=== PATIENT | male | born 1945 | race Caucasian/White ===

== ENCOUNTER → 2016-07-05 | Outpatient (CLI) | payer BC ==
[~2016-07-05] MED LIST: LPR25 PO; LSN/10125 PO; MULTTAB58 PO; OMEG10007 PO; OMEP40CA PO; SIMV20TA2 PO
[2016-07-05 13:05] LABS: BLOOD UREA NITROGEN 19 mg/dl (7-18); BUN/CREATININE RATIO 12.5 (10-20); CALCIUM 9.2 mg/dl (8.5-10.1); CARBON DIOXIDE 25 mmol/L (21-32); CHLORIDE 105 mmol/L (98-107); GLUCOSE 101 mg/dl (70-99); POTASSIUM 3.8 mmol/L (3.5-5.1); SODIUM 140 mmol/L (136-145)
[2016-07-05 13:09] LABS: CHOLESTEROL/HDL RATIO 4.8
== END | disposition home or self-care (01) ==
LOC: C.LABPVFM 08:03
PROVIDERS: ATTEND Family Medicine
DX: E78.2 Mixed hyperlipidemia (principal); I12.9 Hypertensive chronic kidney disease with stage 1 through stage 4 chronic kidney disease, or unspecified chronic kidney disease; N18.2 Chronic kidney disease, stage 2 (mild)

== ENCOUNTER → 2017-11-11 | Day surgery (SDC) | payer BC ==
[2017-11-07 08:53] VITALS: Ht 170.2 cm; Wt 93.2 kg
[~2017-11-11] VITALS: Ht 170.2 cm; Wt 93.2 kg
[~2017-11-11] MED LIST changes: +B-COTAB18 PO; +LIDOCAINE HCL 2% 2 ML VIAL (20MG/ML) ONE; +OMEP-334 PO; -OMEP40CA PO; +PROPOFOL IV EMULSION 10 MG/ML 20 ML VIAL ONE; +PSYL58.636; +RANI150T85 PO
--- NOTE | 2017-11-11 11:17 | Endo History and Physical ---
History & Physical Date of Service: November 11, 2017. Chief Complaint: GERD Referring Physician: Stan History of Present Illness 72 yo CM who presents for EGD secondary to GERD. Past Surgical History Hx Cardiac Surgery: No Hx Internal Defibrillator: No Hx Pacemaker: No Hx Abdominal Surgery: No Hx of Implantable Prosthesis: No Hx Post-Op Nausea and Vomiting: No Hx Cancer Surgery: No Hx Thoracic Surgery: No Hx Orthopedic: No Hx Urinary Tract Surgery: No Social History Smoking Status: Former Smoker Hx Substance Use: No Hx Alcohol Use: No Allergies Coded Allergies: Penicillins (Verified Allergy, Severe, HIVES, 11/07/17) Current Medications Reported Home Medications Medications Dose Route/Sig Max Daily Dose Days Date Category Metamucil Fiber (Psyllium) 51.7 % Andry DIRECTED 11/07/17 Reported Vitamin B Complex (B-Complex Vitamins) 1 Tab Tab 1 Tab PO DAILY 11/07/17 Reported Zantac (Ranitidine HCl) 150 Mg Tab 1 Tab PO BID 30 11/07/[address] (Omeprazole) 40 Mg Cap 1 Cap PO QAM 11/07/17 Reported Lopressor (Metoprolol Tartrate) 25 Mg Tab 12.5 Mg PO BID 30 04/02/16 Rx [place]-3 (Fish Oil) 1 Ea Cap 1 Cap PO BID 03/15/15 Reported Multivitamin (Multiple Vitamin) 1 Tab Tab 1 Tablet PO DAILY 06/09/13 Reported Zocor (Simvastatin) 20 Mg Tab 20 Mg PO QPM 06/09/13 Reported Lisinopril/Hctz 10/12.5 Mg (HCTZ/Lisinopril) 1 Ea Tab 1 Tablet PO DAILY 06/09/13 Reported Vital Signs Weight (Kilograms): 93.18 Height (Feet): 5 Height (Inches): 7 Physical Exam General Appearance: WD/WN, no apparent distress Respiratory/Chest: Auscultation: breath sounds normal Cardiovascular: Heart Auscultation: RRR Abdomen: Bowel Sounds: normal Inspection & Palpation: soft, non-distended, no tenderness, guarding & rebound Assessment and Plan Assessment: 72 yo CM who presents for EGD secondary to GERD. Plan: Proceed with EGD.
[2017-11-11 12:42] VITALS: BP 120/63; PULSE 69; O2SAT 94
--- NOTE | 2017-11-11 12:42 | Discharge Instructions ---
Endoscopy Patient Instructions Date / Procedure(s) Performed November 11, 2017. EGD Allergy Information Coded Allergies: Penicillins (Verified Allergy, Severe, HIVES, 11/07/17) Discharge Date / Findings November 11, 2017. Hiatal hernia Medication Instructions 1) Stop Omeprazole and Ranitidine therapy 2) Start Pantoprazole 40mg by mouth 1/2 hour prior to breakfast and dinner. 3) OK to resume all other medications today as prescribed Reported Home Medications Medications Dose Route/Sig Max Daily Dose Days Date Category Metamucil Fiber (Psyllium) 51.7 % Andry DIRECTED 11/07/17 Reported Vitamin B Complex (B-Complex Vitamins) 1 Tab Tab 1 Tab PO DAILY 11/07/17 Reported Zantac (Ranitidine HCl) 150 Mg Tab 1 Tab PO BID 30 11/07/[address] (Omeprazole) 40 Mg Cap 1 Cap PO QAM 11/07/17 Reported Lopressor (Metoprolol Tartrate) 25 Mg Tab 12.5 Mg PO BID 30 04/02/16 Rx [place]ra-3 (Fish Oil) 1 Ea Cap 1 Cap PO BID 03/15/15 Reported Multivitamin (Multiple Vitamin) 1 Tab Tab 1 Tablet PO DAILY 06/09/13 Reported Zocor (Simvastatin) 20 Mg Tab 20 Mg PO QPM 06/09/13 Reported Lisinopril/Hctz 04/07.5 Mg (HCTZ/Lisinopril) 1 Ea Tab 1 Tablet PO DAILY 06/09/13 Reported Provider Instructions Activity Restrictions - No exercising or heavy lifting for 24 hours. - Do not drink alcohol the day of the procedure. - Do not drive a car or operate machinery until the day after the procedure. - Do not make any important decisions or sign important papers in 24 hours after the procedure. Following Day: - Return to full activity which may include returning to work/school. Diet Start your diet with liquids and light foods (jello, soup, juice, toast). Then eat your usual diet if not nauseated. Treatment For Common After Affects For mild abdominal pain, bloating, or excessive gas: - Rest - Eat lightly - Lie on right side Follow-Up Information Follow-up with Dr. Joanie Pierce as scheduled Anesthesia Information What You Should Know You have had a procedure that required some medicine to reduce anxiety and discomfort. This treatment is called moderate sedation. After receiving the treatment, you may be sleepy, but you will be able to breathe on your own. The effects of the treatment may last for several hours. Follow these instructions along with Activity/Diet recommendations noted above: * Do NOT do anything where dizziness or clumsiness would be dangerous. * Rest quietly at home today, then you can be up and about tomorrow. * Have a responsible person stay with you the rest of today. * You may have had an I.V. today. If so, you may take the dressing off later today. Recommendations Call your doctor if: * Trouble breathing * Continuous vomiting for more than 24 hours * Temperature above 101 degrees * Severe abdominal pain or bloating * Pain not relieved by pain medicine ordered * There is increased drainage or redness from any incision * A large amount of rectal bleeding greater than 2-3 tablespoons. (If you had a polyp/s removed or have hemorrhoids, a small amount of blood - from the rectum is to be expected.) * You have any unanswered questions or concerns. IN THE EVENT OF A SERIOUS EMERGENCY, GO TO THE NEAREST EMERGENCY ROOM Your discharge instructions were prepared by provider Kamaljit Farr. Patient Instructions Signature Page [place] Patient (or Guardian) Signature/Date: I have read and understand the instructions given to me by my caregivers. Caregiver/RN/Doctor Signature/Date: The above-named patient and/or guardian has received patient instructions on this date. + Original Patient Signature Page (only) stays with chart. Please make copy for patient.
--- NOTE | 2017-11-11 12:45 | GI REPORT ---
Patient Name: Franco Membreno Procedure Date: 11/11/2017 11:46 AM Date of : 1945 Admit Type: Outpatient Age: 72 Gender: Male Attending MD: Kamaljit Farr DO Procedure: Upper GI endoscopy Providers: Kamaljit Farr DO Referring MD: Jerod Louis M.d. Indications: Gastro-esophageal reflux disease Medicines: Monitored Anesthesia Care Complications: No immediate complications. Estimated Blood Loss: Estimated blood loss: none. Procedure: Pre-Anesthesia Assessment: - Prior to the procedure, a History and Physical was performed, and patient medications and allergies were reviewed. The patient's tolerance of previous anesthesia was also reviewed. The risks and benefits of the procedure and the sedation options and risks were discussed with the patient. All questions were answered, and informed consent was obtained. Prior Anticoagulants: The patient has taken no previous anticoagulant or antiplatelet agents. ASA Grade Assessment: III - A patient with severe systemic disease. After reviewing the risks and benefits, the patient was deemed in satisfactory condition to undergo the procedure. After obtaining informed consent, the endoscope was passed under direct vision. Throughout the procedure, the patient's blood pressure, pulse, and oxygen saturations were monitored continuously. The scope was introduced through the mouth, and advanced to the second part of duodenum. The upper GI endoscopy was accomplished without difficulty. The patient tolerated the procedure well. Findings: The esophagus was normal. A medium-sized hiatal hernia was present. The examined duodenum was normal. Impression: - Normal esophagus. - Medium-sized hiatal hernia. - Normal examined duodenum. - No specimens collected. Recommendation: - Resume previous diet. - Stop Omeprazole and Ranitidine therapy - Use Protonix (pantoprazole) 40 mg PO BID. - Return to GI office in 6 weeks. Kamaljit Farr DO 11/11/2017 12:44:59 PM This report has been signed electronically. Note Initiated On: 11/11/2017 11:46 AM Number of Addenda: 0 I attest to the content of the Intraoperative Record and orders documented therein, exceptions below {[id number]}
--- NOTE | 2017-11-11 12:59 | Anesthesiology Progress Note ---
Anesthesia Post Op Note Date & Time November 11, 2017 at 12:59 Vital Signs Pain Intensity: 0 Vital Signs Past 12 Hours Date Time Temp Pulse Resp B/P (MAP) Pulse Ox O2 Delivery O2 Flow Rate FiO2 11/11/17 12:42 69 20 120/63 (82) 94 Room Air 11/11/17 12:24 70 18 125/74 (91) 94 Room Air 11/11/17 12:01 36.0 82 16 114/64 (81) 94 Room Air 11/11/17 11:20 36.7 83 20 148/83 (104) 99 Room Air Notes Mental Status: alert / awake / arousable, participated in evaluation Pt Amnestic to Procedure: Yes Nausea / Vomiting: adequately controlled Pain: adequately controlled Airway Patency, RR, SpO2: stable & adequate BP & HR: stable & adequate Hydration State: stable & adequate Anesthetic Complications: no major complications apparent
== END | disposition home or self-care (01) ==
LOC: C.GI 10:49
PROVIDERS: ATTEND Internal Medicine
DX: K21.9 Gastro-esophageal reflux disease without esophagitis (principal); K44.9 Diaphragmatic hernia without obstruction or gangrene; I10 Essential (primary) hypertension; Z88.0 Allergy status to penicillin; Z79.899 Other long term (current) drug therapy; M19.90 Unspecified osteoarthritis, unspecified site

== ENCOUNTER 2019-07-27 16:53 | Inpatient (IN) ==
[2019-07-27] MEDS ORDERED: METOPROLOL TARTRATE 1 MG/ML VIAL IV STA ×3 (17:19→18:38)
[2019-07-27 17:22] LABS: Basophils # (auto) 0.03 K/uL (0-0.2); Basophils % (auto) 0.4 %; Eosinophils # (auto) 0.09 K/uL (0-0.5); Eosinophils % (auto) 1.1 %; Hematocrit (blood only) 43.9 % (42-52); Hemoglobin 15.8 g/dL (14.0-18.0); Immature Granulocytes # (auto) 0.02 K/uL (0.00-0.02); Immature Granulocytes % (auto) 0.3 %; Lymphocytes # (auto) 2.42 K/uL (1.2-3.4); Lymphocytes % (auto) 30.6 %; Mean Corpuscular Hemoglobin 33.3 pg (25-34); Mean Corpuscular Volume 92.4 fL (80-100); Mean Platelet Volume 10.3 fL (7.4-10.4); Monocytes % (auto) 10.1 %; Neutrophils # (auto) 4.54 K/uL (1.4-6.5); Neutrophils % (auto) 57.5 %; Platelet Count 200 K/uL (130-400); RDW Coefficient of Variation 13.1 % (11.5-14.5); RDW Standard Deviation 44.1 fL (36.4-46.3); Red Blood Count 4.75 M/uL (4.7-6.1)
[2019-07-27] MEDS ORDERED: SODIUM CHLORIDE 0.9% 1000ML 1,000 ML IV SCH (17:30)
[2019-07-27 17:33] LABS: Partial Thromboplastin Ratio 0.9; Partial Thromboplastin Time 24.9 Seconds (21.0-31.0); Prothrombin Time 10.1 Seconds (9.0-12.0)
[2019-07-27 17:40] LABS: Alanine Aminotransferase 35 U/L (12-78); Albumin Level 3.9 gm/dl (3.4-5.0); Aspartate Aminotransferase 21 U/L (15-37); BUN Creatinine Ratio 13.3 (10-20); Blood Urea Nitrogen 22 mg/dl (7-18); Calcium 9.2 mg/dl (8.5-10.1); Carbon Dioxide 22 mmol/L (21-32); Chloride 110 mmol/L (98-107); Creatinine Clr Calc Pharmacy 43.8 ml/min; Est GFR (Non-African American) 40.6; Glucose 98 mg/dl (70-99); Potassium 3.9 mmol/L (3.5-5.1); Sodium 140 mmol/L (136-145)
--- NOTE | 2019-07-27 17:41 | XRay Report ---
SINGLE VIEW CHEST CLINICAL HISTORY: Atypical chest pain. FINDINGS: An AP, portable, upright chest radiograph is compared to chest x-ray and chest CT dated 11/26. The examination is degraded by portable technique and apical lordotic positioning. The heart is mildly enlarged. The pulmonary vasculature is noncongested. There is no airspace consolidation or large pleural effusion. Scarring/atelectasis is noted at the lung bases. No pneumothorax is seen. The skeletal structures are osteopenic. The bony thorax is grossly intact. IMPRESSION: Mild cardiac enlargement with no active disease in the chest. ACT 112: Negative or not required by law. Electronically signed by: Demetrio Martinez M.D. 07/27/2019 5:39 PM
[2019-07-27 17:45] LABS: Albumin Globulin Ratio 1.1 (0.9-2); Alkaline Phosphatase 58 U/L (45-117); Bilirubin,Total 0.4 mg/dl (0.2-1); Globulin 3.5 gm/dl (2.5-4.0); Total Protein 7.4 gm/dl (6.4-8.2); Troponin I < 0.015 ng/ml (0-0.045)
[2019-07-27] MEDS ORDERED: ASPIRIN CHEW 324 MG PO STA (18:38)
[2019-07-27] MEDS ORDERED: dilTIAZem HCl 5 MG/ML 5 ML VIAL IV STA (19:53)
--- NOTE | 2019-07-27 20:22 | History & Physical Report ---
Date of Service July 27, 2019 Assessment & Plan (1) Atrial flutter with rapid ventricular response: Franco Membreno is a 73y/o M with PMH significant for HTN, HLD, GERD, and cervicalgia; presented to the emergency room for central chest pressure that had been present since the morning with a pounding sensation in his chest Atrial flutter with RVR: - HR remained in upper 120s to 140s in ED despite Toprol 5mg IV x3 - reverted to normal sinus rhythm prior to bolus of Cardizem being given - negative troponin - will start heparin drip - admit to med/surg with tele HTN: - continue home lisinopril, HCTZ, and Toprol GERD: - continue home Pepcid Hyperlipidemia: - continue home simvastatin Cervicalgia: - PO tylenol PRN available Diet: Heart healthy DVT ppx: Heparin drip Code status: Conditional code - no mechanical ventilation (2) Hypertension: (3) Chronic reflux esophagitis: (4) Mixed hyperlipidemia: (5) Cervicalgia: History of Present Illness Primary Care Provider: Joanie Pierce MD Franco Membreno is a 73y/o M with PMH significant for HTN, HLD, GERD, and cervicalgia; presented to the emergency room with concern of chest pressure that had been present over the course of the day; noticed the first pain this morning between his shoulder blades that he felt was more of an electric sharp pain similar to his normal neck pain, this resolved without any medication after three hours and he thought nothing of it until he walked up the hill about noon and noticed that he had a pressure and a pounding in the center of his chest, during this time he felt slightly more short of breath than he would normally be while walking up the hill. This pressure persisted throughout the afternoon without change or radiation. After being seen in the ED still had the chest pressure but he feels it is more that he feels his heart hitting his chest more than normal. Social hx: non-smoker, non-drinker, no illicits Allergies Allergy/AdvReac Type Severity Reaction Status Date / Time Penicillins Allergy Severe HIVES Verified 07/27/19 17:33 Home Medications Home Medications Medication Instructions Recorded Confirmed Type multivitamin [Multiple Vitamins] 1 tab PO QAM #0 tab 06/09/13 07/27/19 History omega 8-oro-dkr-fish oil [Fish Oil] 1 cap PO QAM #0 cap 03/15/15 07/27/19 History vitamin B complex 1 tab PO QAM #0 11/07/17 07/27/19 History Metamucil 2 tbsp PO QAM 06/22/19 07/27/19 History famotidine [Pepcid] 20 mg PO QPM 06/22/19 07/27/19 History A-C-E-zinc ox-cupric ox-lutein 2 tab PO QAM 07/27/19 07/27/19 History [Ocular Vitamins] Dexilant 60 mg PO DAILYBB 07/27/19 07/27/19 History lisinopril-hydrochlorothiazide 1 tab PO QAM 07/27/19 07/27/19 History [Zestoretic] metoprolol tartrate 12.5 mg PO BID 07/27/19 07/27/19 History simvastatin [Zocor] 20 mg PO HS 07/27/19 07/27/19 History Past Med/Surg History Medical History 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 Cervicalgia (Acute) Chronic sore throat (Acute) External hemorrhoids (Acute) Gastric ulcer GERD (gastroesophageal reflux disease) Hiatal hernia (Acute) Hyperlipidemia Hypertension Mixed hyperlipidemia (Chronic) Peripheral neuropathy (Chronic) Stage 2 chronic kidney disease (Chronic) Vertigo (Acute) Surgical History History of colonoscopy History of esophagogastroduodenoscopy (EGD) 03/03/2018 [facility] History of tooth extraction ALL TEETH REMOVED Family History Mother Myocardial infarction Social History Preferred Language: Estonian Communication Ability: Effective 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 Beliefs That Will Affect Care: None Current Living Situation: Family Current Living Situation Comment: lives with daughter Feels Safe at Home: Yes Safety Concerns: Feels Safe At This Time Smoking Status: Never smoker Tobacco Type: cigarettes ; Second Hand Exposure: No ; Hx Alcohol Use: No Hx Substance Use: No Seatbelt Use: never Review of Systems Constitutional: no fever, no chills and no sweats Eyes: no blind spots, no diplopia and no spots in vision Ear, Nose, Mouth, Throat: no ear discharge, no tinnitus, no nasal congestion, no nasal discharge and no post nasal drip Respiratory: no cough and no wheezing Cardiovascular: as per Subjective / HPI Gastrointestinal: no abdominal pain, no nausea, no vomiting and no change in stools Genitourinary: no difficulty urinating, no urinary frequency, no urinary hesitancy and no hematuria Neurologic: no localized weakness, no loss of sensation, no headache(s), no abnormal speech and no memory loss Physical Exam Constitutional: WD/WN, vitals as above Eyes: PERRL, conjunctivae normal, anicteric sclerae Respiratory: normal respiratory effort, lungs clear to auscultation Auscultation: no crackles, no rales, no rhonchi and no wheezes Cardiovascular: Rate/Rhythm: + tachycardic; + abnormal rhythm (regularly iregular rhythm) Heart Sounds: normal S1 and normal S2; no gallop, no murmur and no cardiac rub Gastrointestinal (Abdomen): normal bowel sounds, soft, nontender, no hepatosplenomegaly Musculoskeletal: no cyanosis or clubbing, extremities motor strength 5/5 Head/Neck/Chest: normocephalic and head atraumatic Skin: no rashes, warm and dry Lymphatic: no cervical or axillary lymphadenopathy Results & Data Vital Signs (Past 12 Hours) Vital Signs Temp Pulse Resp BP Pulse Ox 07/27/19 18:45 128 H 130/87 07/27/19 18:40 135 H 18 93 07/27/19 18:31 127 H 19 93 07/27/19 18:30 129 H 19 130/87 94 07/27/19 18:20 132 H 16 94 07/27/19 18:10 95 07/27/19 18:01 137 H 14 95 07/27/19 18:00 132 H 10 L 129/88 94 07/27/19 17:50 136 H 24 93 07/27/19 17:40 135 H 14 96 07/27/19 17:31 133 H 16 96 07/27/19 17:30 138 H 16 128/93 97 07/27/19 17:26 139 H 153/123 H 07/27/19 17:20 141 H 23 95 07/27/19 17:12 141 H 96 07/27/19 17:11 153/123 H 96 07/27/19 16:56 36.9 C 147 H 18 126/96 94 Laboratory Results 07/27/19 07/27/19 07/27/19 Range/Units 17:13 17:13 17:13 WBC 7.90 (4.8-10.8) K/uL RBC 4.75 (4.7-6.1) M/uL Hgb 15.8 (14.0-18.0) g/dL Hct 43.9 (42-52) % MCV 92.4 (80-100) fL MCH 33.3 (25-34) pg MCHC 36.0 (32-36) g/dL RDW Std Deviation 44.1 (36.4-46.3) fL RDW Coeff of Angel Luis 13.1 (11.5-14.5) % Plt Count 200 (130-400) K/uL MPV 10.3 (7.4-10.4) fL Immature Gran % (Auto) 0.3 % Neut % (Auto) 57.5 % Lymph % (Auto) 30.6 % Nash % (Auto) 10.1 % Eos % (Auto) 1.1 % Baso % (Auto) 0.4 % Immature Gran # (Auto) 0.02 (0.00-0.02) K/uL Neut # (Auto) 4.54 (1.4-6.5) K/uL Lymph # (Auto) 2.42 (1.2-3.4) K/uL Nash # (Auto) 0.80 H (0.11-0.59) K/uL Eos # (Auto) 0.09 (0-0.5) K/uL Baso # (Auto) 0.03 (0-0.2) K/uL PT 10.1 (9.0-12.0) Seconds INR 1.0 (0.9-1.1) APTT 24.9 (21.0-31.0) Seconds PTT Ratio 0.9 Sodium 140 (136-145) mmol/L Potassium 3.9 (3.5-5.1) mmol/L Chloride 110 H (98-107) mmol/L Carbon Dioxide 22 (21-32) mmol/L Anion Gap 8.0 (3-11) BUN 22 H (7-18) mg/dl Creatinine 1.66 H (0.6-1.4) mg/dl Est Cr Clr Drug Dosing 43.8 ml/min Est GFR ( Amer) 47.0 Est GFR (Non-Af Amer) 40.6 BUN/Creatinine Ratio 13.3 (10-20) Glucose 98 (70-99) mg/dl Calcium 9.2 (8.5-10.1) mg/dl Total Bilirubin 0.4 (0.2-1) mg/dl AST 21 (15-37) U/L ALT 35 (12-78) U/L Alkaline Phosphatase 58 (45-117) U/L Troponin I < 0.015 (0-0.045) ng/ml Total Protein 7.4 (6.4-8.2) gm/dl Albumin 3.9 (3.4-5.0) gm/dl Globulin 3.5 (2.5-4.0) gm/dl Albumin/Globulin Ratio 1.1 (0.9-2) Code Status & VTE Plan Code Status Conditional code - no mechanical ventilation Supervising Physician Co-Signing Physician Notes Patient seen and examined, chart reviewed, case discussed with Dr. La and I agree with his assessment and plan as documented above - patient converted to NSR after resident completed his note. Briefly, patient is a 73yo C male with history of HTN/GERD/HLP presenting with chest pressure/mid-scapular pain and palpitations. Patient found to be in atrial flutter on arrival. He was administered Metoprolol 5mg IV x 3 doses with spontaneous conversion to NSR. Patient states that he experiences palpitations occasionally over the last year. He has never been diagnosed with an arrhythmia before. On exam he is afebrile, irregularly irregular rhythm, tachycardia, no m/r/g Lungs -CTA Abd - +BS, soft, NT/ND Ext - no edema Labs and images reviewed Assessment/Plan - 73yo C male with HTN presenting in Atrial flutter with variable block. Patient with [id number] of 2 -Admit to medical floor with telemetry -Continue PO Metoprolol -Patient should receive oral anticoagulation on discharge -Followup with cardiology -Remainder of plan as above Resident Activity Tracking Resident Involvement: Resident Care Provided Care Provided: [facility] Medicine
[2019-07-27] MEDS ORDERED: ONDANSETRON INJ 2 MG/ML 2 ML VIAL IV PRN (21:12)
[2019-07-27] MEDS ORDERED: FAMOTIDINE 20 MG TAB PO SCH (21:12)
[2019-07-27] MEDS ORDERED: HEPARIN SODIUM/DEXTROSE 25,000 UNITS/500 ML BAG IV SCH (21:12)
[2019-07-27] MEDS ORDERED: MAGNESIUM HYDROXIDE SUSP 30 ML UDC PO PRN (21:12)
[2019-07-27] MEDS ORDERED: POLYETHYLENE (MIRALAX) 17 GM PACK PO PRN (21:12)
[2019-07-27] MEDS ORDERED: SIMVASTATIN 20 MG TAB PO SCH (21:12)
[2019-07-27] MEDS ORDERED: ACETAMINOPHEN 325 MG TAB PO PRN (21:12)
[2019-07-27] MEDS ORDERED: ALUMINUM/MAGNESIUM SUSP 30 ML UDC PO PRN (21:12)
--- NOTE | 2019-07-27 22:01 | Billing Data ---
Date of Service July 27, 2019 Coding Level of Care Code 66774 Initial Inpt Care Lvl 3
--- NOTE | 2019-07-27 23:10 | Emergency Department Note ---
Entered by Kayla Davies acting as a scribe for Sunny Cortes MD History of Present Illness General Chief complaint: Chest Pain Stated complaint: CHEST PAIN Time Seen by Provider: 07/27/19 17:08 Source: patient Mode of arrival: ambulatory Limitations: no limitations History of Present Illness Onset (ago): day(s) 1 Location: chest Radiation: extremity (left shoulder) and flank Pain Consistency: + intermittent Maximum Pain Intensity: 2 Current Pain Intensity: 2 Quality: + other ("tightness") Relieved By: + none Exacerbated By: + none Associated symptoms: + other (-pain or swelling in the legs, +dizziness); no fever/chills Treatments prior to arrival: none The patient is a 73 year old male who presents to the ED with complaints of chest discomfort. He states last night while he was sitting down, he experienced chest pain that radiated down his side. This morning, he started experiencing pain that radiates down his left shoulder. He rates his discomfort as a 2/10 in severity and states it felt like "tightness". This afternoon, the pain came back. When he went to the bathroom around 1600, he started to feel like his heart was "out of rhythm", so he decided to come to the ED. He denies any prior history of MN or heart blockages. He does admit to feeling a little dizzy. He denies any recent pain or swelling in the legs. He denies any new medications or missed medications. He denies any recent fevers. Home Medications Home Medications Medication Instructions Recorded Confirmed Type multivitamin [Multiple Vitamins] 1 tab PO QAM #0 tab 06/09/13 07/27/19 History omega 4-cpl-djl-fish oil [Fish Oil] 1 cap PO QAM #0 cap 03/15/15 07/27/19 History vitamin B complex 1 tab PO QAM #0 11/07/17 07/27/19 History Metamucil 2 tbsp PO QAM 06/22/19 07/27/19 History famotidine [Pepcid] 20 mg PO QPM 06/22/19 07/27/19 History A-C-E-zinc ox-cupric ox-lutein 2 tab PO QAM 07/27/19 07/27/19 History [Ocular Vitamins] Dexilant 60 mg PO DAILYBB 07/27/19 07/27/19 History lisinopril-hydrochlorothiazide 1 tab PO QAM 07/27/19 07/27/19 History [Zestoretic] metoprolol tartrate 12.5 mg PO BID 07/27/19 07/27/19 History simvastatin [Zocor] 20 mg PO HS 07/27/19 07/27/19 History Allergies Allergy/AdvReac Type Severity Reaction Status Date / Time Penicillins Allergy Severe HIVES Verified 07/27/19 17:33 Past Med/Surg History Medical History 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 Cervicalgia (Acute) Chronic sore throat (Acute) External hemorrhoids (Acute) Gastric ulcer GERD (gastroesophageal reflux disease) Hiatal hernia (Acute) Hyperlipidemia Hypertension Mixed hyperlipidemia (Chronic) Peripheral neuropathy (Chronic) Stage 2 chronic kidney disease (Chronic) Vertigo (Acute) Surgical History History of colonoscopy History of esophagogastroduodenoscopy (EGD) 03/03/2018 [facility] [place] History of tooth extraction ALL TEETH REMOVED Family History Mother Myocardial infarction Social History Preferred Language: Nauruan Communication Ability: Effective Resident Care Spec Required: No Beliefs That Will Affect Care: None Current Living Situation: Family Current Living Situation Comment: lives with daughter Feels Safe at Home: Yes Safety Concerns: Feels Safe At This Time Smoking Status: Never smoker Tobacco Type: cigarettes ; Second Hand Exposure: No ; Hx Alcohol Use: No Hx Substance Use: No Seatbelt Use: never Review of Systems See HPI for pertinent positives & negatives. and A total of 10 systems reviewed and were otherwise negative Physical Exam Vital Signs Vital Signs - 24 hr 07/27/19 16:56 07/27/19 17:11 07/27/19 17:12 Temperature 36.9 C Temperature Source Oral Pulse Rate 147 H 141 H Pulse Rate from SpO2 Sensor 142 H 140 H Respiratory Rate 18 Blood Pressure 126/96 153/123 H Blood Pressure Mean 106 133 Pulse Oximetry 94 96 96 Oxygen Delivery Method Room Air Room Air Room Air Sepsis Recent Fever Within 48 Hours No Sepsis New/Unexplained Change in Mental Status No Sepsis Action Taken by Nursing No Action Required 07/27/19 17:18 07/27/19 17:20 07/27/19 17:26 Temperature Temperature Source Pulse Rate 141 H 139 H Pulse Rate from SpO2 Sensor 141 H Respiratory Rate 23 Blood Pressure 153/123 H Blood Pressure Mean Pulse Oximetry 95 Oxygen Delivery Method Room Air Room Air Sepsis Recent Fever Within 48 Hours Sepsis New/Unexplained Change in Mental Status Sepsis Action Taken by Nursing 07/27/19 17:30 07/27/19 17:31 07/27/19 17:40 Temperature Temperature Source Pulse Rate 138 H 133 H 135 H Pulse Rate from SpO2 Sensor 137 H 135 H 135 H Respiratory Rate 16 16 14 Blood Pressure 128/93 Blood Pressure Mean 107 Pulse Oximetry 97 96 96 Oxygen Delivery Method Room Air Room Air Room Air Sepsis Recent Fever Within 48 Hours Sepsis New/Unexplained Change in Mental Status Sepsis Action Taken by Nursing 07/27/19 17:50 07/27/19 18:00 07/27/19 18:01 Temperature Temperature Source Pulse Rate 136 H 132 H 137 H Pulse Rate from SpO2 Sensor 137 H 135 H 134 H Respiratory Rate 24 10 L 14 Blood Pressure 129/88 Blood Pressure Mean 93 Pulse Oximetry 93 94 95 Oxygen Delivery Method Room Air Room Air Room Air Sepsis Recent Fever Within 48 Hours Sepsis New/Unexplained Change in Mental Status Sepsis Action Taken by Nursing 07/27/19 18:10 07/27/19 18:20 07/27/19 18:30 Temperature Temperature Source Pulse Rate 132 H 129 H Pulse Rate from SpO2 Sensor 137 H 136 H 129 H Respiratory Rate 16 19 Blood Pressure 130/87 Blood Pressure Mean 116 Pulse Oximetry 95 94 94 Oxygen Delivery Method Room Air Room Air Room Air Sepsis Recent Fever Within 48 Hours Sepsis New/Unexplained Change in Mental Status Sepsis Action Taken by Nursing 07/27/19 18:31 07/27/19 18:40 07/27/19 18:45 Temperature Temperature Source Pulse Rate 127 H 135 H 128 H Pulse Rate from SpO2 Sensor 125 H 129 H Respiratory Rate 19 18 Blood Pressure 130/87 Blood Pressure Mean Pulse Oximetry 93 93 Oxygen Delivery Method Room Air Room Air Sepsis Recent Fever Within 48 Hours Sepsis New/Unexplained Change in Mental Status Sepsis Action Taken by Nursing General: Non-ill appearing older male in no acute distress. HEENT: Normal cephalic atraumatic. Pupils are equal round and reactive to light. Extraocular movements are intact. Oropharynx is pink with moist mucous membranes. No swelling of the mouth lips or tongue. Neck: Supple with a midline trachea. No meningeal signs or stiffness, no JVD or bruits. No Stridor. Chest: Clear to auscultation bilaterally. No wheezes or rhonchi. No increased work of breathing. Heart: Tachycardic heart rate, regular rhythm. Abdomen: Soft nontender, nondistended without rebound guarding or rigidity. Extremities: No cyanosis clubbing or edema. No calf tenderness or asymmetry Spine/Back. Non tender to palpation. No CVA tenderness Skin: Good turgor without rashes. Neurologic exam: Cranial nerves two through 12 are intact. Motor and sensation are intact and symmetrical throughout. Course Course 1711: The patient was evaluated in room B9 and a complete history and physical were performed. 1720: On the monitor, he is tachycardic in the 140s, no ischemic changes. 1745: His heart rate is in the 130s. I will order another dose of Lopressor. 2035: I reevaluated the patient. He is resting comfortably. I discussed his results and my recommendation he remain in the hospital for further evaluation and management and he is agreeable with the plan. He denies any chest pain. 1855: I discussed the patients case with Dr. Agrawal, [facility] Hospitalist. The patient will be further evaluated. Administered Medications Famotidine (Pepcid) 20 mg PO QPM [facility] Stop: 08/26/19 21:11 Last Admin: 07/27/19 22:19 Dose: Not Given Documented by: [id number] Simvastatin (Zocor) 20 mg PO HS [facility] Stop: 08/26/19 21:11 Last Admin: 07/27/19 22:18 Dose: 20 mg Documented by: [id number] Discontinued Medications Aspirin (Aspirin) 324 mg PO NOW STA Stop: 07/27/19 18:39 Last Admin: 07/27/19 18:45 Dose: 324 mg Documented by: [id number] Diltiazem HCl (Cardizem) 20 mg IV NOW STA Stop: 07/27/19 19:54 Last Admin: 07/27/19 20:31 Dose: Not Given Documented by: [id number] Heparin Sodium/Dextrose () 1 ea IV Q15M [facility]; Protocol Stop: 07/27/19 23:59 Last Admin: 07/27/19 22:07 Dose: Not Given Documented by: [id number] Admin: 07/27/19 22:07 Dose: Not Given Documented by: [id number] Sodium Chloride (Nss 1000ml) 1,000 mls @ 999 mls/hr IV .Q1H1M [facility] Stop: 07/27/19 18:30 Last Infusion: 07/27/19 18:27 Dose: 0 mls/hr Documented by: [id number] Admin: 07/27/19 17:26 Dose: 999 mls/hr Documented by: [id number] Heparin Sodium/Dextrose (Heparin Sodium/Dextrose) 25,000 units in 500 mls @ 0.02 mls/hr IV .Q24H [facility]; Protocol Stop: 08/26/19 21:11 Last Admin: 07/27/19 22:07 Dose: Not Given Documented by: [id number] Metoprolol Tartrate (Lopressor) 5 mg IV NOW STA Stop: 07/27/19 17:20 Last Admin: 07/27/19 17:26 Dose: 5 mg Documented by: [id number] Metoprolol Tartrate (Lopressor) 5 mg IV NOW STA Stop: 07/27/19 17:49 Last Admin: 07/27/19 18:15 Dose: 5 mg Documented by: [id number] Metoprolol Tartrate (Lopressor) 5 mg IV NOW STA Stop: 07/27/19 18:39 Last Admin: 07/27/19 18:45 Dose: 5 mg Documented by: [id number] Critical Care Time Critical Care Time: Yes Total Critical Care Time: 35 I have personally spent 35 minutes of critical care time in the direct management of this patient. This includes bedside care, interpretation of diagnostic studies, and testing, discussion with consultants, patient, and family members, and other required patient management activities. This 35 minutes is in excess of all separately billable procedures. Medical Decision Making Differential Diagnosis The differential diagnoses considered include ACS, arrhythmia, atrial fibrillation, atrial flutter, SVT, electrolyte or metabolic abnormality, CHF. Medical Records Attestation: I reviewed the patient's medical records. Home Medications Current Medication List: was personally reviewed by me Laboratory Data Attestation: I reviewed the patient's lab results. Result diagrams: 07/27/19 17:13 07/27/19 17:13 Lab Results 07/27/19 07/27/19 07/27/19 Range/Units 17:13 17:13 17:13 WBC 7.90 (4.8-10.8) K/uL RBC 4.75 (4.7-6.1) M/uL Hgb 15.8 (14.0-18.0) g/dL Hct 43.9 (42-52) % MCV 92.4 (80-100) fL MCH 33.3 (25-34) pg MCHC 36.0 (32-36) g/dL RDW Std Deviation 44.1 (36.4-46.3) fL RDW Coeff of Angel Luis 13.1 (11.5-14.5) % Plt Count 200 (130-400) K/uL MPV 10.3 (7.4-10.4) fL Immature Gran % (Auto) 0.3 % Neut % (Auto) 57.5 % Lymph % (Auto) 30.6 % Ida % (Auto) 10.1 % Eos % (Auto) 1.1 % Baso % (Auto) 0.4 % Immature Gran # (Auto) 0.02 (0.00-0.02) K/uL Neut # (Auto) 4.54 (1.4-6.5) K/uL Lymph # (Auto) 2.42 (1.2-3.4) K/uL Ida # (Auto) 0.80 H (0.11-0.59) K/uL Eos # (Auto) 0.09 (0-0.5) K/uL Baso # (Auto) 0.03 (0-0.2) K/uL PT 10.1 (9.0-12.0) Seconds INR 1.0 (0.9-1.1) APTT 24.9 (21.0-31.0) Seconds PTT Ratio 0.9 Sodium 140 (136-145) mmol/L Potassium 3.9 (3.5-5.1) mmol/L Chloride 110 H (98-107) mmol/L Carbon Dioxide 22 (21-32) mmol/L Anion Gap 8.0 (3-11) BUN 22 H (7-18) mg/dl Creatinine 1.66 H (0.6-1.4) mg/dl Est Cr Clr Drug Dosing 43.8 ml/min Est GFR ( Amer) 47.0 Est GFR (Non-Af Amer) 40.6 BUN/Creatinine Ratio 13.3 (10-20) Glucose 98 (70-99) mg/dl Calcium 9.2 (8.5-10.1) mg/dl Total Bilirubin 0.4 (0.2-1) mg/dl AST 21 (15-37) U/L ALT 35 (12-78) U/L Alkaline Phosphatase 58 (45-117) U/L Troponin I < 0.015 (0-0.045) ng/ml Total Protein 7.4 (6.4-8.2) gm/dl Albumin 3.9 (3.4-5.0) gm/dl Globulin 3.5 (2.5-4.0) gm/dl Albumin/Globulin Ratio 1.1 (0.9-2) Hepatitis C Ab Screen (Neg) 07/27/19 Range/Units 17:13 WBC (4.8-10.8) K/uL RBC (4.7-6.1) M/uL Hgb (14.0-18.0) g/dL Hct (42-52) % MCV (80-100) fL MCH (25-34) pg MCHC (32-36) g/dL RDW Std Deviation (36.4-46.3) fL RDW Coeff of Angel Luis (11.5-14.5) % Plt Count (130-400) K/uL MPV (7.4-10.4) fL Immature Gran % (Auto) % Neut % (Auto) % Lymph % (Auto) % Ida % (Auto) % Eos % (Auto) % Baso % (Auto) % Immature Gran # (Auto) (0.00-0.02) K/uL Neut # (Auto) (1.4-6.5) K/uL Lymph # (Auto) (1.2-3.4) K/uL Ida # (Auto) (0.11-0.59) K/uL Eos # (Auto) (0-0.5) K/uL Baso # (Auto) (0-0.2) K/uL PT (9.0-12.0) Seconds INR (0.9-1.1) APTT (21.0-31.0) Seconds PTT Ratio Sodium (136-145) mmol/L Potassium (3.5-5.1) mmol/L Chloride (98-107) mmol/L Carbon Dioxide (21-32) mmol/L Anion Gap (3-11) BUN (7-18) mg/dl Creatinine (0.6-1.4) mg/dl Est Cr Clr Drug Dosing ml/min Est GFR ( Amer) Est GFR (Non-Af Amer) BUN/Creatinine Ratio (10-20) Glucose (70-99) mg/dl Calcium (8.5-10.1) mg/dl Total Bilirubin (0.2-1) mg/dl AST (15-37) U/L ALT (12-78) U/L Alkaline Phosphatase (45-117) U/L Troponin I (0-0.045) ng/ml Total Protein (6.4-8.2) gm/dl Albumin (3.4-5.0) gm/dl Globulin (2.5-4.0) gm/dl Albumin/Globulin Ratio (0.9-2) Hepatitis C Ab Screen Neg (Neg) Imaging Data Radiologist's Impression: Radiology results as stated below per my review and the radiologist's interpretation: SINGLE VIEW CHEST CLINICAL HISTORY: Atypical chest pain. FINDINGS: An AP, portable, upright chest radiograph is compared to chest x-ray and chest CT dated 12/20/2017. The examination is degraded by portable technique and apical lordotic positioning. The heart is mildly enlarged. The pulmonary vasculature is noncongested. There is no airspace consolidation or large pleural effusion. Scarring/atelectasis is noted at the lung bases. No pneumothorax is seen. The skeletal structures are osteopenic. The bony thorax is grossly intact. IMPRESSION: Mild cardiac enlargement with no active disease in the chest. ACT 112: Negative or not required by law. Electronically signed by: Demetrio Martinez M.D. 07/27/2019 5:39 PM ECG Data Attestation: I personally reviewed and interpreted this ECG as follows: Indication: + chest pain Rate (beats per minute): 144 Rhythm: + atrial flutter (Aflutter with 2 to 1 block) ECG ST segments: + Nonspecific ST abnormalities Comparison ECG Date: from (12/20/2017) Change: the following changes noted (Flutter has replaced sinus) Additional Comments: 2nd EKG on 07/27/2019: Flutter with variable block, rate of 125, no ischemic change, compared to EKG #1, rate has decreased. Blood Pressure Blood Pressure Findings: Elevated blood pressure Blood Pressure Disposition: further management by hospitalist DYLAN Narrative This patient comes in as described above. He was placed in room B9. He has been having some chest pain off and on for the last day or so which feels like pressure and radiates his shoulder. He felt that his heart was fast today. When he arrived, he was in rapid a flutter. The tech who did the EKG came and showed it to me and I saw the patient immediately after that. He appears c omfortable. It does look like a flutter with a rate of about 150. IV access was established. chest x-ray does not show congestive heart failure, pneumonia, or pneumothorax. I did give him Lopressor 5 mg IV x3 and his rate slowed down to the 120s to 130s where he now has a variable block. he says he feels fine he was given aspirin 324 mg chewable. his troponin is negative. he has no acute electrolyte or metabolic abnormalities. I do think he needs to be admitted/observe for further inpatient treatment and evaluation and rate control. He is never had any A. fib or flutter before and does need a cardiac/arrhythmic work-up. I have consulted the [facility] hospitalist to see him ER for these measures. Impression & Plan Atrial flutter with rapid ventricular response, Chest pain, Palpitations, Hypertension, Hypercholesteremia Discharge Plan Visit Data *Final* Discharge Date/Time: 07/27/19 20:38 Chief Complaint: Chest Pain Stated Complaint: CHEST PAIN ED Provider: Sunny Cortes Discharge Problem: Atrial flutter with rapid ventricular response, Chest pain, Palpitations, Hypertension, Hypercholesteremia Patient Disposition: Admitted As Inpatient Discharge Instructions Interventions: ED Discharge Assessment Last Done: 07/27/19 20:38 Discharge Problem: Chest pain Qualifiers: Chest pain type: precordial pain Qualified Code(s): R07.2 - Precordial pain Hypertension Qualifiers: Hypertension type: unspecified Qualified Code(s): I10 - Essential (primary) hypertension The scribe's documentation has been prepared under my direction and personally reviewed by me in its entirety. I confirm that the note above accurately reflects all work, treatment, procedures, and medical decision making performed by me.
[2019-07-28] MEDS ORDERED: PANTOprazole 40 MG TAB PO SCH (09:00)
[2019-07-28] MEDS ORDERED: LISINOPRIL/HCTZ 10/12.5MG TAB PO SCH (09:00)
[2019-07-28] MEDS ORDERED: METOPROLOL TARTRATE 25 MG TAB PO SCH ×2 (09:00→21:00)
[2019-07-28] MEDS ORDERED: APIXABAN 5 MG TABLET PO SCH (10:00)
[2019-07-28] MEDS ORDERED: PERFLUTREN LIPID MICROSPHERE (DEFINITY) IV ONE (11:16)
--- NOTE | 2019-07-28 14:01 | Cardiology Consultation ---
Date of Consultation July 28, 2019 Assessment & Plan (1) Atrial flutter with rapid ventricular response: (2) Hypertension: ASSESSMENT/PLAN: 1. Paroxysmal atrial flutter with rapid ventricular response: He was quite symptomatic and it appears as though he likely has short episodes chronically on an intermittent basis. Increase metoprolol to 25 mg twice daily. We talked about more long-term treatment strategy such as atrial flutter ablation, especially if he has more frequent episodes. He would like to monitor for now on beta-itzel and consider his options in the future if he has more frequent recurrence. Chads Vasc score is elevated. Agree with anticoagulation. Will arrange for 30 day outpatient event monitor. Recommend follow-up in cardiology office after completion of his event monitor. 2. Hypertension: Blood pressure mostly normal while hospitalized. Adjusting beta-itzel as above. 3. Disposition: Can be discharged home from a cardiology perspective. Plan of care discussed with Dr. Camarena of the primary hospitalist service. Thank you for allowing me to participate in the care of your patient. Please call for any other questions or concerns. Sincerely, Subhash Mack M.D. History of Present Illness Reason for Consultation: Atrial flutter Requesting Physician: Dr. Camarena Attending Physician: Roque Camarena History of Present Illness Mr. Membreno is a pleasant 73-year-old gentleman with a history significant for hypertension and dyslipidemia who was admitted on 07/27/2019 with atrial flutter with rapid ventricular response. In [address] Abreu here at [facility] with palpitations. He states that palpitations this time were a bit different. Yesterday morning when he woke up, he noted a intrascapular discomfort. It seemed to be a bit better with rest, more notable with exertion. It persisted throughout the entire morning and resolves sometime in the afternoon. When it was present, it was a mild discomfort, rated 2/10. After resolved, he walked up a flight of stairs to use the restroom and felt a flutter sensation. This was more pronounced in his throat area. The palpitations started at approximately 3:45 p.m. and persisted, prompting him to come to the emergency department. He was found to be in atrial flutter with rapid ventricular response. He was given IV metoprolol. According to records, the decision was to give IV diltiazem but before this was done, he spontaneously converted to sinus rhythm at 8:20 p.m. on 07/27/2019. He admits that he has had these palpitations in the past, lasting typically only a few minutes before spontaneously resolving. He has a few episodes per year. This was the longest episode that he has experienced. It was quite worried that he perhaps was having a heart attack. He denies any recent fevers, chills, abdominal pain, nausea, vomiting, syncope, near-syncope, chest discomfort, diarrhea, edema, stroke, stroke-like symptoms, or bleeding such as melena, hematochezia, or hematuria. He takes metoprolol tartrate 12.5 mg twice daily at home, which he has tolerated well. He admits that the intrascapular pain may have been due to his cervical spine issues which she has chronically been experiencing. He typically has discomfort when he turns his head to the right. The intrascapular pain with separate and did not occur with his palpitations. He denies chest pain at any time during his episode. Currently, he is asymptomatic. He does report having a colonoscopy approximately 2 weeks ago as part of a screening process and reports that it was normal. Review of systems: As above. Review of systems otherwise negative/unremarkable. Family history: Mother had UT in her 70s. Social history: He smoked approximately 2 packs per day for 10-12 years but quit 1977. No alcohol or drugs. Worked as a local company truck driver. He is and his ex- has since . His daughter, Tiny, lives with him. He also has a female associate store manager. He was alone in his hospital room. Allergies Allergy/AdvReac Type Severity Reaction Status Date / Time Penicillins Allergy Severe HIVES Verified 07/27/19 17:33 Home Medications Home Medications Medication Instructions Recorded Confirmed Type multivitamin [Multiple Vitamins] 1 tab PO QAM #0 tab 06/09/13 07/27/19 History omega 9-zex-mqa-fish oil [Fish Oil] 1 cap PO QAM #0 cap 03/15/15 07/27/19 History vitamin B complex 1 tab PO QAM #0 11/07/17 07/27/19 History Metamucil 2 tbsp PO QAM 06/22/19 07/27/19 History famotidine [Pepcid] 20 mg PO QPM 06/22/19 07/27/19 History A-C-E-zinc ox-cupric ox-lutein 2 tab PO QAM 07/27/19 07/27/19 History [Ocular Vitamins] Dexilant 60 mg PO DAILYBB 07/27/19 07/27/19 History lisinopril-hydrochlorothiazide 1 tab PO QAM 07/27/19 07/27/19 History [Zestoretic] metoprolol tartrate 12.5 mg PO BID 07/27/19 07/27/19 History simvastatin [Zocor] 20 mg PO HS 07/27/19 07/27/19 History Patient History Medical History 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 Cervicalgia (Acute) Chronic sore throat (Acute) External hemorrhoids (Acute) Gastric ulcer GERD (gastroesophageal reflux disease) Hiatal hernia (Acute) Hyperlipidemia Hypertension Mixed hyperlipidemia (Chronic) Peripheral neuropathy (Chronic) Stage 2 chronic kidney disease (Chronic) Vertigo (Acute) Surgical History History of colonoscopy History of esophagogastroduodenoscopy (EGD) 03/03/2018 [facility] History of tooth extraction ALL TEETH REMOVED Family History Mother Myocardial infarction Social History Preferred Language: Maltese Communication Ability: Effective Capsule Maker Required: No Beliefs That Will Affect Care: None Current Living Situation: Family Current Living Situation Comment: lives with daughter Feels Safe at Home: Yes Safety Concerns: Feels Safe At This Time Smoking Status: Never smoker Tobacco Type: cigarettes ; Second Hand Exposure: No ; Hx Alcohol Use: No Hx Substance Use: No Seatbelt Use: never Physical Exam Physical Exam: Gen.: No acute distress. Alert and oriented. HEENT: Anicteric sclera. Neck: No JVD. No bruits. Normal carotid upstrokes bilaterally. Cardiac: PMI was nondisplaced. No ventricular heave. Regular rate and rhythm. Normal S1-S2. No murmurs, rubs, or gallops. Pulmonary: Clear to auscultation bilaterally without wheezes, rales, or rhonchi. Abdomen: Soft, nontender, nondistended, with normoactive bowel sounds. No bruits noted. Extremities: 2+ radial pulses bilaterally. 2+ posterior tibialis pulses bilaterally. No edema or cyanosis. Psychiatric: Affect appears appropriate. Results & Data Vital Signs (Past 12 Hours) Vital Signs Temp Pulse Resp BP BP Pulse Ox 07/28/19 11:38 37.4 C 75 18 146/81 H 96 07/28/19 07:00 36.4 C L 68 18 113/73 93 07/28/19 03:13 36.8 C 73 20 115/70 96 Laboratory Results Laboratory Results - last 24 hr 07/27/19 07/27/19 07/27/19 17:13 17:13 17:13 WBC 7.90 RBC 4.75 Hgb 15.8 Hct 43.9 MCV 92.4 MCH 33.3 MCHC 36.0 RDW Std Deviation 44.1 RDW Coeff of Angel Luis 13.1 Plt Count 200 MPV 10.3 Immature Gran % (Auto) 0.3 Neut % (Auto) 57.5 Lymph % (Auto) 30.6 [place] % (Auto) 10.1 Eos % (Auto) 1.1 Baso % (Auto) 0.4 Immature Gran # (Auto) 0.02 Neut # (Auto) 4.54 Lymph # (Auto) 2.42 [place] # (Auto) 0.80 H Eos # (Auto) 0.09 Baso # (Auto) 0.03 PT 10.1 INR 1.0 APTT 24.9 PTT Ratio 0.9 Sodium 140 Potassium 3.9 Chloride 110 H Carbon Dioxide 22 Anion Gap 8.0 BUN 22 H Creatinine 1.66 H Est Cr Clr Drug Dosing 43.8 Est GFR ( Amer) 47.0 Est GFR (Non-Af Amer) 40.6 BUN/Creatinine Ratio 13.3 Glucose 98 Calcium 9.2 Total Bilirubin 0.4 AST 21 ALT 35 Alkaline Phosphatase 58 Troponin I < 0.015 Total Protein 7.4 Albumin 3.9 Globulin 3.5 Albumin/Globulin Ratio 1.1 Hepatitis C Ab Screen 07/27/19 07/28/19 17:13 11:38 WBC RBC Hgb Hct MCV MCH MCHC RDW Std Deviation RDW Coeff of Angel Luis Plt Count MPV Immature Gran % (Auto) Neut % (Auto) Lymph % (Auto) [place] % (Auto) Eos % (Auto) Baso % (Auto) Immature Gran # (Auto) Neut # (Auto) Lymph # (Auto) [place] # (Auto) Eos # (Auto) Baso # (Auto) PT INR APTT PTT Ratio Sodium Potassium Chloride Carbon Dioxide Anion Gap BUN Creatinine Est Cr Clr Drug Dosing Est GFR ( Amer) Est GFR (Non-Af Amer) BUN/Creatinine Ratio Glucose Calcium Total Bilirubin AST ALT Alkaline Phosphatase Troponin I < 0.015 Total Protein Albumin Globulin Albumin/Globulin Ratio Hepatitis C Ab Screen Neg Diagnostic Findings Telemetry personally reviewed: Atrial flutter converted to sinus rhythm at 8:20 p.m. on 07/27/2019. ECGs personally reviewed: ECG 07/27/2019 at 8:27 p.m.: Sinus rhythm 86 bpm. Normal ECG. ECG [id number]: Atrial flutter with rapid ventricular response at 125 bpm. ECG 07/27/2019 at 5:01 p.m.: Atrial flutter with rapid ventricular response at [address] abnormality. Echo 07/28/2019: Images personally reviewed. On preliminary review, LV systolic function is normal. No significant valvular regurgitation or stenosis noted. Formal review to follow. Results discussed with patient. Chest x-ray 07/27/2019: No acute disease. Medications Administered Current Inpatient Medications Acetaminophen (Tylenol) 650 mg PO Q4H PRN PRN Reason: pain/fever Stop: 08/26/19 21:11 Al Hydrox/Mg Hydrox/Simethicone (Maalox) 30 ml PO Q6H PRN PRN Reason: Dyspepsia Stop: 08/26/19 21:11 Apixaban (Eliquis) 5 mg PO BID [facility] Stop: 08/27/19 09:59 Last Admin: 07/28/19 12:07 Dose: 5 mg Documented by: Famotidine (Pepcid) 20 mg PO QPM [facility] Stop: 08/26/19 21:11 Last Admin: 07/27/19 22:19 Dose: Not Given Documented by: Lisinopril/HCTZ (Prinzide 10/12.5mg) 1 tab PO QAM [facility] Stop: 08/27/19 08:59 Last Admin: 07/28/19 08:27 Dose: 1 tab Documented by: Magnesium Hydroxide (Milk Of Magnesia) 30 ml PO Q6H PRN PRN Reason: Constipation Stop: 08/26/19 21:11 Metoprolol Tartrate (Lopressor) 25 mg PO BID [facility] Stop: 08/27/19 20:59 Ondansetron HCl (Zofran) 4 mg IV Q6H PRN PRN Reason: Nausea Stop: 08/26/19 21:11 Pantoprazole Sodium (Protonix) 40 mg PO QAM [facility] Stop: 08/27/19 08:59 Last Admin: 07/28/19 10:26 Dose: 40 mg Documented by: Polyethylene Glycol (Miralax Powder Packet) 17 gm PO DAILY PRN PRN Reason: Constipation Stop: 08/26/19 21:11 Simvastatin (Zocor) 20 mg PO HS [facility] Stop: 08/26/19 21:11 Last Admin: 07/27/19 22:18 Dose: 20 mg Documented by: PG Care Time/CCT Total # of Minutes Spent Total Time Spent with Patient: Total time spent is greater than 50% in coordination of care (as documented) at patient's floor/unit and/or counseling patient: Coding Level of Care Code 29684 Initial Inpt Care Lvl 2 Diagnoses Atrial flutter with rapid ventricular response I48.92 Hypertension I10
[2019-07-28] MEDS ORDERED: METOPROLOL TARTRATE 25 MG TAB PO ONE (14:15)
--- NOTE | 2019-07-28 16:24 | XCELERA ---
[id number] [id number]
--- NOTE | 2019-07-28 17:03 | Electrocardiogram Report ---
Test Reason : Blood Pressure : / mmHG Vent. Rate : 144 BPM Atrial Rate : 288 BPM P-R Int : 000 ms QRS Dur : 082 ms QT Int : 332 ms P-R-T Axes : 270 -40 -52 degrees QTc Int : 514 ms Atrial flutter with 2:1 A-V conduction Left axis deviation Nonspecific ST abnormality Abnormal ECG When compared with ECG of 20-DEC-2017 01:59, Atrial flutter has replaced Sinus rhythm Confirmed by Robby Mack ([id number]) on 07/28/2019 5:03:26 PM Referred By: REFERRED SELF Confirmed By:Robby Mack
--- NOTE | 2019-07-28 17:10 | Electrocardiogram Report ---
Test Reason : Blood Pressure : / mmHG Vent. Rate : 125 BPM Atrial Rate : 278 BPM P-R Int : 000 ms QRS Dur : 078 ms QT Int : 318 ms P-R-T Axes : 000 -22 016 degrees QTc Int : 458 ms Atrial flutter with variable A-V block Abnormal ECG When compared with ECG of 27-JUL-2019 17:01, Nonspecific ST abnormality is no longer Present in Anterolateral leads Confirmed by Robby Mack ([id number]) on 07/28/2019 5:10:19 PM Referred By: REFERRED SELF Confirmed By:Robby Mack
--- NOTE | 2019-07-28 21:36 | Electrocardiogram Report ---
Test Reason : Blood Pressure : / mmHG Vent. Rate : 086 BPM Atrial Rate : 086 BPM P-R Int : 144 ms QRS Dur : 082 ms QT Int : 354 ms P-R-T Axes : 053 -11 031 degrees QTc Int : 423 ms Normal sinus rhythm Normal ECG When compared with ECG of 27-JUL-2019 18:50, Sinus rhythm has replaced Atrial flutter Confirmed by Robby Mack ([id number]) on 07/28/2019 9:35:46 PM Referred By: REFERRED SELF Confirmed By:Robby Mack
--- NOTE | 2019-08-02 13:40 | Discharge Summary ---
Date of Service July 28, 2019 Admission HPI Per Admitting Provider Franco Membreno is a 73y/o M with PMH significant for HTN, HLD, GERD, and cervicalgia; presented to the emergency room with concern of chest pressure that had been present over the course of the day; noticed the first pain this morning between his shoulder blades that he felt was more of an electric sharp pain similar to his normal neck pain, this resolved without any medication after three hours and he thought nothing of it until he walked up the hill about noon and noticed that he had a pressure and a pounding in the center of his chest, during this time he felt slightly more short of breath than he would normally be while walking up the hill. This pressure persisted throughout the afternoon without change or radiation. After being seen in the ED still had the chest pressure but he feels it is more that he feels his heart hitting his chest more than normal. Social hx: non-smoker, non-drinker, no illicits Principal Diagnosis atrial flutter RVR Discharge Exam Constitutional: WD/WN, vitals as above Eyes: PERRL, conjunctivae normal, anicteric sclerae Respiratory: normal respiratory effort, lungs clear to auscultation Auscultation: no crackles, no rales, no rhonchi and no wheezes Cardiovascular: Rate/Rhythm: RRR Heart Sounds: normal S1 and normal S2; no gallop, no murmur and no cardiac rub Gastrointestinal (Abdomen): normal bowel sounds, soft, nontender, no hepatosplenomegaly Musculoskeletal: no cyanosis or clubbing, extremities motor strength 5/5 Head/Neck/Chest: normocephalic and head atraumatic Skin: no rashes, warm and dry Lymphatic: no cervical or axillary lymphadenopathy Discharge Data Allergies Allergy/AdvReac Type Severity Reaction Status Date / Time Penicillins Allergy Severe HIVES Verified 08/01/19 11:21 Consultations 07/27/19 18:53 ED Decision to Admit Stat 07/28/19 09:44 Consult Cardiology Routine Hospital Course (1) Atrial flutter with rapid ventricular response: Franco Membreno is a 73y/o M with PMH significant for HTN, HLD, GERD, and cervicalgia; presented to the emergency room for central chest pressure that had been present since the morning with a pounding sensation in his chest Atrial flutter with RVR: - HR remained in upper 120s to 140s in ED despite Toprol 5mg IV x3 - reverted to normal sinus rhythm prior to bolus of Cardizem being given - negative troponin - will start heparin drip - admit to med/surg with tele On day of discharge: Evaluated by cardio: He was quite symptomatic and it appears as though he likely has short episodes chronically on an intermittent basis. Increase metoprolol to 25 mg twice daily. We talked about more long-term treatment strategy such as atrial flutter ablation, especially if he has more frequent episodes. He would like to monitor for now on beta-itzel and consider his options in the future if he has more frequent recurrence. Chads Vasc score is elevated. Agree with anticoagulation. Will arrange for 30 day outpatient event monitor. Recommend follow-up in cardiology office after completion of his event monitor. Will discharge him on a higher dose of metoprolol and eliquis. HTN: - continue home lisinopril, HCTZ, and Toprol GERD: - continue home Pepcid Hyperlipidemia: - continue home simvastatin Cervicalgia: - PO tylenol PRN available Diet: Heart healthy (2) Hypertension: (3) Chronic reflux esophagitis: (4) Mixed hyperlipidemia: (5) Cervicalgia: Total Time Total Time Spent Total Time Spent (In Minutes): 32 Discharge Plan Discharge Items Patient Disposition: Home - Self-Care Reason For Visit: CHEST PAIN Discharge Diagnosis: Atrial flutter Activity: Resume your previous activity Non-emergency contact: Primary Care Provider Call non-emergency contact if: you have any medication questions Follow-up/Referrals: Joanie Pierce MD [Primary Care Provider] - Diet: Carb Consistent or DM2 Addtl Attending Provider Instructions: You have been hospitalized for an acute medical problem. During your stay at [facility], we have made an effort to correct the problem that brought you to the hospital while keeping you as comfortable as possible. Medications were used to bring your condition under control and your discharge instructions will include directions for any medications you should take after leaving the hospital. Please make sure you see your Primary Care Provider as pa rt of your follow up plan. Pending Studies at Discharge: No Stand-Alone Forms: My [facility], Smoking Cessation Medications and DC Order Prescriptions: New metoprolol tartrate 25 mg Tablet 25 mg PO BID Qty: 60 RF: 0 Eliquis 5 mg Tablet 5 mg PO BID Qty: 60 RF: 0 Continued multivitamin [Multiple Vitamins] Tablet 1 tab PO QAM Qty: 0 RF: 0 omega 2-eur-slt-fish oil [Fish Oil] 1,000 mg (120 mg-180 mg) Capsule 1 cap PO QAM Qty: 0 RF: 0 vitamin B complex Tablet 1 tab PO QAM Qty: 0 RF: 0 famotidine [Pepcid] 20 mg Tablet 20 mg PO QPM RF: 0 Metamucil 3.4 gram/5.4 gram Powder 2 tbsp PO QAM RF: 0 simvastatin [Zocor] 20 mg tablet 20 mg PO HS RF: 0 lisinopril-hydrochlorothiazide [Zestoretic] 10-12.5 mg tablet 1 tab PO QAM RF: 0 Dexilant 60 mg capsule,biphase delayed releas 60 mg PO DAILYBB RF: 0 Ocular Vitamins 7,160 unit- 113 mg-0.5 mg Tablet 2 tab PO QAM RF: 0 Discontinued metoprolol tartrate 25 mg tablet 12.5 mg PO BID RF: 0 Discharge Orders: Discharge Order (Routine); Ordered 07/28/19 Ordered By: Roque Camarena Admission Data Admit Date/Time: 07/27/19 20:15 Attending Provider: Roque Camarena Admit Provider: Rodrigo La Primary Care Provider: Joanie Pierce Other Providers: Ashanti Agrawal Alexander W. Other Interventions: Discharge Summary Assessment (RN) Last Done: 07/28/19 15:52 DC Date/Time DO NOT enter until pt leaves facility: 07/28/19 17:01 Coding Level of Care Code D/C Day Management >30 mins Diagnoses Atrial flutter with rapid ventricular response I48.92 Hypertension I10 Chronic reflux esophagitis K21.0 Mixed hyperlipidemia E78.2 Cervicalgia M54.2
== END 2019-07-28 17:01 | disposition home or self-care (01) | DRG 310 ==
LOC: ED 16:53 → 2N 20:15 → SUATTDRO 20:15 → 2N 20:38

== ENCOUNTER 2020-08-08 16:33 | Inpatient (IN) ==
[2020-08-08 17:42] LABS: Basophils # (auto) 0.05 K/uL (0-0.2); Basophils % (auto) 0.4 %; Eosinophils # (auto) 0.03 K/uL (0-0.5); Eosinophils % (auto) 0.2 %; Hematocrit (blood only) 40.9 % (42-52); Hemoglobin 14.1 g/dL (14.0-18.0); Immature Granulocytes # (auto) 0.04 K/uL (0.00-0.02); Immature Granulocytes % (auto) 0.3 %; Lymphocytes # (auto) 1.41 K/uL (1.2-3.4); Lymphocytes % (auto) 10.1 %; Mean Corpuscular Hemoglobin 31.8 pg (25-34); Mean Corpuscular Hgb Conc 34.5 g/dL (32-36); Mean Corpuscular Volume 92.1 fL (80-100); Monocytes # (auto) 1.23 K/uL (0.11-0.59); Monocytes % (auto) 8.8 %; Neutrophils # (auto) 11.25 K/uL (1.4-6.5); Neutrophils % (auto) 80.2 %; Platelet Count 310 K/uL (130-400); RDW Coefficient of Variation 12.7 % (11.5-14.5); RDW Standard Deviation 43.1 fL (36.4-46.3); Red Blood Count 4.44 M/uL (4.7-6.1); White Blood Count 14.01 K/uL (4.8-10.8)
[2020-08-08 17:59] LABS: Albumin Level 3.3 gm/dl (3.4-5.0); BUN Creatinine Ratio 15.3 (10-20); Calcium 9.6 mg/dl (8.5-10.1); Creatinine Clr Calc Pharmacy 36.5 ml/min; Est GFR (African American) 38.6; Est GFR (Non-African American) 33.3; Potassium 4.2 mmol/L (3.5-5.1)
[2020-08-08 18:02] LABS: Albumin Globulin Ratio 0.7 (0.9-2); Bilirubin,Total 0.7 mg/dl (0.2-1); Globulin 4.7 gm/dl (2.5-4.0)
[2020-08-08] MEDS ORDERED: SODIUM CHLORIDE 0.9% 1000ML 500 ML IV ONE (18:13)
[2020-08-08] MEDS ORDERED: ONDANSETRON INJ 2 MG/ML 2 ML VIAL IV STA (18:13)
[2020-08-08] MEDS ORDERED: ACETAMINOPHEN 1,000 MG/100 ML VIAL IV STA (18:15)
[2020-08-08] MEDS ORDERED: metroNIDAZOLE 500 MG TAB PO STA (18:15)
--- NOTE | 2020-08-08 18:37 | Emergency Department Note ---
History of Present Illness General Chief complaint: Abdominal Pain Stated complaint: ABDOMINAL PAIN Time Seen by Provider: 08/08/20 18:09 Source: patient, RN notes reviewed and old records reviewed Mode of arrival: ambulatory Limitations: no limitations History of Present Illness Provider complaint: LLQ abd pain Onset (ago): week(s) 1 Location: abdomen Radiation: back Severity: moderate Pain Consistency: + intermittent Maximum Pain Intensity: 6 Current Pain Intensity: 6 Quality: + aching Relieved By: + immobilization and + rest Exacerbated By: + movement Associated symptoms: + denies other symptoms and + nausea/vomiting; no chest pain, no cough, no fever/chills, no headaches, no shortness of breath and no weakness This is a 75-year-old male who presents emergency department complaining of left lower quadrant abdominal pain that has been ongoing for the least the past week. The patient reports he was placed on Cipro by his primary care physician on Tuesday. The patient reports that his pain was actually much worse when his p ain first started last . He has not taken anything for the pain. He describes the pain as an ache made worse with movement however immobilization makes the pain better. Home Medications Medication Instructions Recorded Confirmed Type multivitamin [Multiple Vitamins] 1 tab PO QAM #0 tab 06/09/13 08/08/20 History omega 2-nbq-qoa-fish oil [Fish Oil] 1 cap PO QAM #0 cap 03/15/15 08/08/20 History vitamin B complex 1 tab PO QAM #0 11/07/17 08/08/20 History Metamucil 2 tbsp PO QAM 06/22/19 08/08/20 History famotidine [Pepcid] 20 mg PO QPM 06/22/19 08/08/20 History vit A 7,160 unit-vit C 113 mg-vit 1 tab PO QAM tab 02/13/20 08/08/20 History K-inim-pvlual-lutein 0.5 mg tablet simvastatin 20 mg tablet 20 mg PO HS #90 tab 05/12/20 08/08/20 Rx lisinopril 10 1 tab PO DAILY #90 tab 06/04/20 08/08/20 Rx mg-hydrochlorothiazide 12.5 mg tablet metoprolol succinate 100 mg 100 mg PO DAILY #90 tab 06/04/20 08/08/20 Rx tablet,extended release 24 hr apixaban 5 mg tablet 5 mg PO BID #180 tab 06/30/20 08/08/20 Rx fluticasone propionate 50 2 spray INTRANASAL DAILY #15.8 g 06/30/20 08/08/20 Rx mcg/actuation nasal spray,suspension omeprazole 40 mg capsule,delayed 40 mg PO DAILY #30 cap 06/30/20 08/08/20 Rx release ciprofloxacin HCl 500 mg tablet 500 mg PO BID 10 Days #20 tab 08/05/20 08/08/20 Rx Allergies Allergy/AdvReac Type Severity Reaction Status Date / Time Penicillins Allergy Severe HIVES Verified 08/08/20 19:53 Past Med/Surg History Medical History (Updated 08/08/20 @ 21:36 by Rocco Appiah MD) 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 Cervicalgia Chronic sore throat External hemorrhoids Gastric ulcer GERD (gastroesophageal reflux disease) Hiatal hernia Hyperlipidemia Hypertension Mixed hyperlipidemia Peripheral neuropathy Stage 2 chronic kidney disease Vertigo Surgical History History of colonoscopy History of esophagogastroduodenoscopy (EGD) 03/03/2018 [facility] History of tooth extraction ALL TEETH REMOVED Family History Mother Myocardial infarction Hypertension Father Cancer Other Heart disease No family history of allergies No family history of bleeding disorder Denies family history of Ovarian cancer Prostate cancer Hearing loss Crohn's disease Breast cancer Colorectal cancer Ulcerative colitis Stroke Asthma Social History Smoking Status: Never smoker Tobacco Type: Cigarettes packs per day: 1.5; Second Hand Exposure: No; Hx Alcohol Use: No Hx Substance Use: No Preferred Language: Japanese Communication Ability: Effective 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 Beliefs That Will Affect Care: None marital status: Single Current Living Situation: Family Current Living Situation Comment: lives with daughter current occupational status: retired Feels Safe at Home: Yes Seatbelt Use: never Assistive Devices: None Review of Systems A total of 10 systems reviewed and were otherwise negative Physical Exam Vital Signs Vital Signs - 24 hr 08/08/20 16:46 08/08/20 18:48 08/08/20 18:49 Temperature 36.2 C L Temperature Source Oral Pulse Rate 89 78 78 Pulse Rate from SpO2 Sensor 78 78 Pulse Rhythm Regular Pulse Strength Normal Respiratory Rate 18 19 20 Respiratory Effort / Characteristics Non-Labored Respiratory Depth Normal Respiratory Pattern Regular Blood Pressure 132/79 125/77 Blood Pressure Mean 96 93 Blood Pressure Position Sitting Pulse Oximetry 97 96 96 Oxygen Delivery Method Room Air Sepsis Recent Fever Within 48 Hours No Sepsis New/Unexplained Change in Mental Status No Sepsis Action Taken by Nursing No Action Required 08/08/20 18:50 08/08/20 19:00 08/08/20 19:01 Temperature Temperature Source Pulse Rate 77 75 79 Pulse Rate from SpO2 Sensor 77 75 Pulse Rhythm Pulse Strength Respiratory Rate 23 19 20 Respiratory Effort / Characteristics Respiratory Depth Respiratory Pattern Blood Pressure 122/77 Blood Pressure Mean 92 Blood Pressure Position Pulse Oximetry 96 95 Oxygen Delivery Method Sepsis Recent Fever Within 48 Hours Sepsis New/Unexplained Change in Mental Status Sepsis Action Taken by Nursing 08/08/20 19:12 08/08/20 19:20 08/08/20 19:30 Temperature Temperature Source Pulse Rate 113 H 77 76 Pulse Rate from SpO2 Sensor 77 76 Pulse Rhythm Pulse Strength Respiratory Rate 19 Respiratory Effort / Characteristics Respiratory Depth Respiratory Pattern Blood Pressure 110/71 Blood Pressure Mean 84 Blood Pressure Position Pulse Oximetry 95 94 Oxygen Delivery Method Sepsis Recent Fever Within 48 Hours Sepsis New/Unexplained Change in Mental Status Sepsis Action Taken by Nursing 08/08/20 19:31 08/08/20 19:40 08/08/20 19:50 Temperature Temperature Source Pulse Rate 77 80 78 Pulse Rate from SpO2 Sensor 77 80 79 Pulse Rhythm Pulse Strength Respiratory Rate 21 18 14 Respiratory Effort / Characteristics Respiratory Depth Respiratory Pattern Blood Pressure Blood Pressure Mean Blood Pressure Position Pulse Oximetry 94 96 96 Oxygen Delivery Method Sepsis Recent Fever Within 48 Hours Sepsis New/Unexplained Change in Mental Status Sepsis Action Taken by Nursing 08/08/20 20:00 08/08/20 20:01 08/08/20 20:10 Temperature Temperature Source Pulse Rate 74 74 74 Pulse Rate from SpO2 Sensor 75 75 73 Pulse Rhythm Pulse Strength Respiratory Rate 19 20 19 Respiratory Effort / Characteristics Respiratory Depth Respiratory Pattern Blood Pressure 131/67 Blood Pressure Mean 88 Blood Pressure Position Pulse Oximetry 94 94 94 Oxygen Delivery Method Sepsis Recent Fever Within 48 Hours Sepsis New/Unexplained Change in Mental Status Sepsis Action Taken by Nursing 08/08/20 20:20 08/08/20 20:30 08/08/20 20:31 Temperature Temperature Source Pulse Rate 74 73 67 Pulse Rate from SpO2 Sensor 74 73 71 Pulse Rhythm Pulse Strength Respiratory Rate 17 16 17 Respiratory Effort / Characteristics Respiratory Depth Respiratory Pattern Blood Pressure 118/70 Blood Pressure Mean 86 Blood Pressure Position Pulse Oximetry 94 94 95 Oxygen Delivery Method Sepsis Recent Fever Within 48 Hours Sepsis New/Unexplained Change in Mental Status Sepsis Action Taken by Nursing 08/08/20 20:40 08/08/20 20:50 08/08/20 21:00 Temperature Temperature Source Pulse Rate 73 73 72 Pulse Rate from SpO2 Sensor 74 72 72 Pulse Rhythm Pulse Strength Respiratory Rate 18 21 19 Respiratory Effort / Characteristics Respiratory Depth Respiratory Pattern Blood Pressure 118/71 Blood Pressure Mean 86 Blood Pressure Position Pulse Oximetry 94 94 95 Oxygen Delivery Method Sepsis Recent Fever Within 48 Hours Sepsis New/Unexplained Change in Mental Status Sepsis Action Taken by Nursing 08/08/20 21:01 Temperature Temperature Source Pulse Rate 72 Pulse Rate from SpO2 Sensor 71 Pulse Rhythm Pulse Strength Respiratory Rate 21 Respiratory Effort / Characteristics Respiratory Depth Respiratory Pattern Blood Pressure Blood Pressure Mean Blood Pressure Position Pulse Oximetry 95 Oxygen Delivery Method Sepsis Recent Fever Within 48 Hours Sepsis New/Unexplained Change in Mental Status Sepsis Action Taken by Nursing VITAL SIGNS - Vital signs and nursing notes were reviewed. GENERAL - 75-year-old male appearing stated age who is in no acute distress. Communicates well with provider and answers questions appropriately. SKIN - Without rashes. HEAD - NC/AT. EYES - PERRL with EOMI bilaterally. Sclera anicteric. Palpebral conjunctiva pink and moist with no injection noted. EARS - No deformities of external structures noted on gross examination bilaterally. NOSE - Midline and without cyanosis. No epistaxis or purulent drainage noted. Septum midline without deviation or septal hematoma noted. MOUTH/OROPHARYNX - Without perioral cyanosis. Buccal mucosa pink and moist and without leukoplakia. Tongue midline with equal elevation of palate bilaterally. No tonsillar hypertrophy, erythema, or exudates noted. dentition noted. NECK - Neck with FROM. Supple to palpation. lymphadenopathy noted. No nuchal rigidity. LUNGS - Chest wall symmetric without accessory muscle use, intercostals retractions, or central cyanosis. Normal vesicular breath sounds CTA B/L. No wheezes, rales, or rhonchi appreciated. CARDIAC - RRR with S1/S2. No murmur, rubs, or gallops appreciated. ABDOMEN - Abdominal contour without pulsations or visible masses. BS normoactive all four quadrants. + mildly tender LLQ; No, palpable masses, hepatosplenomegaly, or ascites noted. EXTREMITIES - No clubbing or peripheral cyanosis. No pretibial edema present. +3/5 radial, posterior tibial, and dorsalis pedis pulses palpated throughout. +5/5 strength noted in UE/LE bilaterally. NEUROLOGIC - Cranial nerves II through XII grossly intact. Sensory intact to light touch throughout. Patellar reflexes +2/4. PSYCH - A&Ox3 and cooperates fully with examiner. Pt is very pleasant and interacts well with examiner. Course Administered Medications Discontinued Medications Sodium Chloride (Nss 1000ml) 500 mls @ 999 mls/hr IV .Q31M ONE Stop: 08/08/20 18:43 Last Admin: 08/08/20 18:44 Dose: 999 mls/hr Documented by: [id number] Acetaminophen (Ofirmev) 1,000 mg in 100 mls @ 400 mls/hr IV NOW STA Stop: 08/08/20 18:29 Last Admin: 08/08/20 18:40 Dose: 400 mls/hr Documented by: [id number] Aztreonam 2,000 mg/ Dextrose 110 mls @ 100 mls/hr IV NOW STA; Protocol Stop: 08/08/20 20:36 Last Admin: 08/08/20 19:56 Dose: 100 mls/hr Documented by: [id number] Vancomycin HCl (Vancomycin Hcl) 1,000 mg in 270 mls @ 200 mls/hr IV NOW STA Stop: 08/08/20 20:51 Last Admin: 08/08/20 20:59 Dose: 200 mls/hr Documented by: [id number] Metronidazole (Metronidazole 500 Mg Tab) 500 mg PO NOW STA Stop: 08/08/20 18:16 Last Admin: 08/08/20 18:39 Dose: 500 mg Documented by: [id number] Ondansetron HCl (Ondansetron Inj 2 Mg/Ml 2 Ml Vial) 4 mg IV NOW STA Stop: 08/08/20 18:14 Last Admin: 08/08/20 18:39 Dose: 4 mg Documented by: [id number] Medical Decision Making Differential Diagnosis Appendicitis, testicular torsion, infections, diverticulitis, UTI, obstruction, mesenteric ischemia, aortic pathology, inflammatory bowel disease, renal colic, PUD, pancreatitis, biliary pathology, hernia, volvulus, constipation, as well as other pathologies. Medical Records Attestation: I reviewed the patient's medical records. Home Medications Current Medication List: was personally reviewed by me Laboratory Data Result diagrams: 08/08/20 17:25 08/08/20 17:25 Lab Results 08/08/20 08/08/20 08/08/20 Range/Units 17:25 17:25 19:45 WBC 14.01 H (4.8-10.8) K/uL RBC 4.44 L (4.7-6.1) M/uL Hgb 14.1 (14.0-18.0) g/dL Hct 40.9 L (42-52) % MCV 92.1 (80-100) fL MCH 31.8 (25-34) pg MCHC 34.5 (32-36) g/dL RDW Std Deviation 43.1 (36.4-46.3) fL RDW Coeff of Angel Luis 12.7 (11.5-14.5) % Plt Count 310 (130-400) K/uL MPV 10.0 (7.4-10.4) fL Immature Gran % (Auto) 0.3 % Neut % (Auto) 80.2 % Lymph % (Auto) 10.1 % Mayes % (Auto) 8.8 % Eos % (Auto) 0.2 % Baso % (Auto) 0.4 % Neut # (Auto) 11.25 H (1.4-6.5) K/uL Lymph # (Auto) 1.41 (1.2-3.4) K/uL Mayes # (Auto) 1.23 H (0.11-0.59) K/uL Eos # (Auto) 0.03 (0-0.5) K/uL Baso # (Auto) 0.05 (0-0.2) K/uL Immature Gran # (Auto) 0.04 H (0.00-0.02) K/uL Sodium 136 (136-145) mmol/L Potassium 4.2 (3.5-5.1) mmol/L Chloride 105 (98-107) mmol/L Carbon Dioxide 22 (21-32) mmol/L Anion Gap 10.0 (3-11) BUN 30 H (7-18) mg/dl Creatinine 1.93 H (0.6-1.4) mg/dl Est Cr Clr Drug Dosing 36.5 ml/min Est GFR ( Amer) 38.6 Est GFR (Non-Af Amer) 33.3 BUN/Creatinine Ratio 15.3 (10-20) Glucose 110 H (70-99) mg/dl Calcium 9.6 (8.5-10.1) mg/dl Total Bilirubin 0.7 (0.2-1) mg/dl AST 26 (15-37) U/L ALT 47 (12-78) U/L Alkaline Phosphatase 85 (45-117) U/L Total Protein 8.0 (6.4-8.2) gm/dl Albumin 3.3 L (3.4-5.0) gm/dl Globulin 4.7 H (2.5-4.0) gm/dl Albumin/Globulin Ratio 0.7 L (0.9-2) Lipase 185 (73-393) U/L COVID-19 Eval [facility] SARS-CoV-2, RNA, NAAT (NEGATIVE) 08/08/20 Range/Units 19:45 WBC (4.8-10.8) K/uL RBC (4.7-6.1) M/uL Hgb (14.0-18.0) g/dL Hct (42-52) % MCV (80-100) fL MCH (25-34) pg MCHC (32-36) g/dL RDW Std Deviation (36.4-46.3) fL RDW Coeff of Angel Luis (11.5-14.5) % Plt Count (130-400) K/uL MPV (7.4-10.4) fL Immature Gran % (Auto) % Neut % (Auto) % Lymph % (Auto) % Mayes % (Auto) % Eos % (Auto) % Baso % (Auto) % Neut # (Auto) (1.4-6.5) K/uL Lymph # (Auto) (1.2-3.4) K/uL Mayes # (Auto) (0.11-0.59) K/uL Eos # (Auto) (0-0.5) K/uL Baso # (Auto) (0-0.2) K/uL Immature Gran # (Auto) (0.00-0.02) K/uL Sodium (136-145) mmol/L Potassium (3.5-5.1) mmol/L Chloride (98-107) mmol/L Carbon Dioxide (21-32) mmol/L Anion Gap (3-11) BUN (7-18) mg/dl Creatinine (0.6-1.4) mg/dl Est Cr Clr Drug Dosing ml/min Est GFR ( Amer) Est GFR (Non-Af Amer) BUN/Creatinine Ratio (10-20) Glucose (70-99) mg/dl Calcium (8.5-10.1) mg/dl Total Bilirubin (0.2-1) mg/dl AST (15-37) U/L ALT (12-78) U/L Alkaline Phosphatase (45-117) U/L Total Protein (6.4-8.2) gm/dl Albumin (3.4-5.0) gm/dl Globulin (2.5-4.0) gm/dl Albumin/Globulin Ratio (0.9-2) Lipase (73-393) U/L COVID-19 Eval Order SARS-CoV-2, RNA, NAAT NEGATIVE (NEGATIVE) Imaging Data Radiologist's Impression: [facility], [id number] CT Scan Report Patient: MARION SHARP Date: 08/08/20MR#: [id number][id number]: Date: [address] Zip: [place], [place] [address]Tit: 75Location: EDSex: MRoom/Bed:Att Phy:Diagnosis: ABDOMINAL PAINPri Phy: Joanie Pierce MDService Date: 08/08/20Fa Phy:Interpreting Phy: Ubaldo Bland MDAdmit Phy: Ordering Phy: Rocco Appiah MD cc: ~ CT SCAN OF THE ABDOMEN AND PELVIS WITHOUT CONTRAST CLINICAL HISTORY: Abdominal pain. Possible diverticulitis. COMPARISON STUDY: No previous studies for comparison. TECHNIQUE: CT scan of the abdomen and pelvis was performed from the lung bases to the proximal femurs. Images are reviewed in the axial, sagittal, and coronal planes. IV contrast was not administered for this examination. A dose lowering technique was utilized adhering to the principles of ALARA. CT DOSE: 587.87 mGy.cm FINDINGS: Lower chest: There is a moderate hiatal hernia. There is mild basilar atelectasis. 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 There is no intrahepatic biliary ductal dilatation. Gallbladder: Unremarkable. Spleen: Normal in size and attenuation. Pancreas: Unremarkable. Adrenal glands: Unremarkable. Kidneys: There is minor bilateral perinephric stranding. There is no hydronephrosis. No renal, ureteral, or bladder calculi are visualized. Bowel: There are no transition zones to indicate bowel obstruction. The appendix appears normal. There is colonic diverticulosis. There is bowel wall thickening of the proximal sigmoid: With infiltration of the parotid colonic fat. Evaluation is limited given the lack of intravenous contrast. There is a probable intramural abscess. There is a possible small abscess within the p eridiverticular soft tissues. Peritoneum: There is no intraperitoneal free air or abdominal ascites. There are small fat-containing inguinal hernias versus lipomatous inguinal canals Vasculature: The abdominal aorta is normal in course and caliber. Adenopathy: None. Pelvic viscera: Prostate is enlarged. Skeletal structures: No destructive osseous lesions are seen. IMPRESSION: 1. No evidence of bowel obstruction. No evidence of free air 2. No renal, ureteral, or bladder calculi identified 3. Normal appendix 4. Acute diverticulitis involving the proximal sigmoid colon. There is a probable intramural abscess, and possible small pericolonic abscess. Follow-up studies are recommended to exclude the remote possibility of a neoplasm at this location. ACT 112: Negative or not required by law. Electronically signed by: Ubaldo Bland M.D. 08/08/2020 7:18 PM Dictated: 08/08/201911Transcribed: 08/08/201911 [facility] Narrative Patient was seen and evaluated as above in room C5. Review was performed of nursing notes and vital signs. I did review pertinent previous visits and patient history. After obtaining a thorough history and physical examination the above work up was performed. This is a 75-year-old male who presents emergency department complaining of abdominal pain. Using shared medical decision making with the patient he was sent for CAT scan of the abdomen pelvis. This is concerning for diverticulitis with what appears to be 2 very small abscesses. I did discuss the case with surgery who was kind enough to come and see the patient as well as the medicine service. The patient does have an elevation his white blood cell count. He was started on IV Rocephin as well as IV vancomycin. Repeat examination revealed improvement the patient's symptoms. While in the department, I personally reevaluated the patient several times and each time the patient was found to be resting comfortably. The patient was educated upon management, educated upon todays findings/results, educated upon importance of follow up from today's visit, educated upon symptoms in which to return, had questions answered prior to discharge, verbalized understanding, and was discharged home in good condition. An order was placed for continuous cardiac monitoring. The monitor shows a rate of 72 with Normal SInus rhythm. The patient was evaluated during a period of high volume and high acuity while the hospital was at overcapacity during the global COVID-19 pandemic, and that diagnosis was suspected/considered upon their initial presentation. Their evaluation, treatment and testing was consistent with current guidelines for p atients who present with complaints or symptoms that may be related to COVID-19. Impression & Plan Abdominal pain, Stage 2 chronic kidney disease, Anticoagulant long-term use, Diverticulitis Discharge Plan Visit Data Chief Complaint: Abdominal Pain Stated Complaint: ABDOMINAL PAIN ED Provider: Rocco Appiah Discharge Problem: Abdominal pain, Stage 2 chronic kidney disease, Anticoagulant long-term use, Diverticulitis Forms Stand Alone Forms: My [facility] [employer] Prescriptions Prescriptions: No Action multivitamin [Multiple Vitamins] Tablet 1 tab PO QAM Qty: 0 RF: 0 omega 4-wlq-wxg-fish oil [Fish Oil] 1,000 mg (120 mg-180 mg) Capsule 1 cap PO QAM Qty: 0 RF: 0 vitamin B complex Tablet 1 tab PO QAM Qty: 0 RF: 0 simvastatin [Zocor] 20 mg tablet 20 mg PO HS Qty: 90 RF: 1 ciprofloxacin HCl [Cipro] 500 mg tablet 500 mg PO BID 10 Days Qty: 20 RF: 0 omeprazole 40 mg capsule,delayed release(DR/EC) 40 mg PO DAILY Qty: 30 RF: 2 Eliquis 5 mg tablet 5 mg PO BID Qty: 180 RF: 3 fluticasone propionate 50 mcg/actuation spray,suspension 2 spray intranasal DAILY Qty: 15.8 RF: 8 lisinopril-hydrochlorothiazide 10-12.5 mg tablet 1 tab PO DAILY Qty: 90 RF: 3 metoprolol succinate 100 mg tablet extended release 24 hr 100 mg PO DAILY Qty: 90 RF: 3 famotidine [Pepcid] 20 mg Tablet 20 mg PO QPM RF: 0 Metamucil 3.4 gram/5.4 gram Powder 2 tbsp PO QAM RF: 0 Ocular Vitamins 7,160 unit- 113 mg-0.5 mg tablet 1 tab PO QAM RF: 0 Discharge Problem: Abdominal pain Qualifiers: Abdominal location: unspecified location Qualified Code(s): R10.9 - Unspecified abdominal pain
--- NOTE | 2020-08-08 19:19 | CT Scan Report ---
CT SCAN OF THE ABDOMEN AND PELVIS WITHOUT CONTRAST CLINICAL HISTORY: Abdominal pain. Possible diverticulitis. COMPARISON STUDY: No previous studies for comparison. TECHNIQUE: CT scan of the abdomen and pelvis was performed from the lung bases to the proximal femurs . Images are reviewed in the axial, sagittal, and coronal planes. IV contrast was not administered fo r this examination. A dose lowering technique was utilized adhering to the principles of ALARA. CT DOSE: 587.87 mGy.cm FINDINGS: Lower chest: There is a moderate hiatal hernia. There is mild basilar atelectasis. There is a left-si ded pleural lipoma Liver: The unenhanced liver is normal in size, contour, and attenuation. There is no intrahepatic sushma iary ductal dilatation. Gallbladder: Unremarkable. Spleen: Normal in size and attenuation. Pancreas: Unremarkable. Adrenal glands: Unremarkable. Kidneys: There is minor bilateral perinephric stranding. There is no hydronephrosis. No renal, ureter al, or bladder calculi are visualized. Bowel: There are no transition zones to indicate bowel obstruction. The appendix appears normal. Ther e is colonic diverticulosis. There is bowel wall thickening of the proximal sigmoid: With infiltratio n of the parotid colonic fat. Evaluation is limited given the lack of intravenous contrast. There is a probable intramural abscess. There is a possible small abscess within the peridiverticular soft tis sues. Peritoneum: There is no intraperitoneal free air or abdominal ascites. There are small fat-containing inguinal hernias versus lipomatous inguinal canals Vasculature: The abdominal aorta is normal in course and caliber. Adenopathy: None. Pelvic viscera: Prostate is enlarged. Skeletal structures: No destructive osseous lesions are seen. IMPRESSION: 1. No evidence of bowel obstruction. No evidence of free air 2. No renal, ureteral, or bladder calculi identified 3. Normal appendix 4. Acute diverticulitis involving the proximal sigmoid colon. There is a probable intramural abscess, and possible small pericolonic abscess. Follow-up studies are recommended to exclude the remote poss ibility of a neoplasm at this location. ACT 112: Negative or not required by law. Electronically signed by: Ubaldo Bland M.D. 08/08/2020 7:18 PM
[2020-08-08] MEDS ORDERED: AZTREONAM 2,000 MG in DEXTROSE 5% 100 ML IV STA (19:31)
[2020-08-08] MEDS ORDERED: VANCOMYCIN CONSULT ACTIVE PRN (19:31)
[2020-08-08] MEDS ORDERED: VANCOMYCIN HCL 1,000 MG/270 ML BAG IV STA (19:31)
--- NOTE | 2020-08-08 19:51 | Surgery Consultation ---
Date of Consultation August 08, 2020 Assessment & Plan (1) Diverticulitis: Patient is being admitted to the hospital by the hospitalist and we will proceed in the following manner: Keep the patient n.p.o. except for ice chips which he may use sparingly Continue IV antibiotics. He has already been administered aztreonam due to penicillin allergy and that should continue Provide IV fluids for hydration Follow serial labs I have discussed with the patient the situation. At the present time he does not have a surgical abdomen. Ideally it would be best to allow his acute diverticulitis to resolve prior to performing any surgical intervention, if deemed necessary, as it would be preferable to perform a 1 stage after operation after an appropriate bowel prep Supervising Physician Co-Signing Physician Notes As per Chris Rico physician carpenter assistant This patient had a attack of diverticulitis many years ago is pretty much been free of any recurrent attacks until roughly 45 days ago when he started having some abdominal pain he states that he had a small bowel movement today he is hungry Patient had colonoscopy in the past Abdominal exam the abdomen is slightly distended has tenderness in the left l ower quadrant towards the left flank rest of the abdomen slight guarding Anticipated care presently in future were explained to the patient the present time will require about 2 or 3 days of antibiotics IV in hospital and then probably 7 days outpatient antibiotics We touched basically upon the idea of that he should consider having surgery for this procedure since he does have a perforation in the localized and likely have recurrent attacks in the future but we will address that in the near future at this time I do not see any indication that the patient would require any surgery and this episode should resolve with IV antibiotics I would hold off feeding any significant diet the patient today since he has not passed any flatus and had a very small bowel movement we certainly can start him just on some clear liquids History of Present Illness Reason for Consultation: Diverticulitis History of Present Illness This is a 75-year-old male who presented to [facility] emergency department due to persistent abdominal pain for approximately 2 week s.Patient reports a history of diverticulitis at approximately 1994. Patient says he was successfully treated in a conservative manner with antibiotics and did not require hospitalization. He notes that with his current presentation he began to have lower abdominal discomfort approximately 2 weeks ago. He notes the pain is located in his lower abdomen it is worse in the left lower quadrant. It does not radiate. He does not note any palliative or provocative factors. He has not lost any weight. He did not report any change in appetite. He has not had any nausea vomiting. He has felt feverish with occasional chills but denies rigors. He notes that he has not had any issues with constipation and he does not report any bright red blood per rectum or melena.Patient notes that his pain was not getting any better so he contacted his primary care physician who placed him on oral Cipro and Flagyl approximately 3 days ago. Despite this modality he did not improve and therefore he presented to the emergency department. In the emergency department he did have labs where his white blood cell count was noted to be 14.0. His hemoglobin was within the normal range as were his platelet count. His sodium, potassium were within normal range. He was noted to have an elevated creatinine of 1.9 which was slightly higher than his baseline of approximately 1.6-1.7. Patient recently received his Covid vaccine and a Covid test has been ordered by the ED physician and is pending. In addition to the blood work he had a CT scan of the abdomen which showed no evidence of bowel obstruction or free air. His appendix was noted be normal. He was noted to have acute diverticulitis primarily involving the sigmoid colon with a likely intramural abscess and a small pericolonic abscess.It is noteworthy to mention that this patient did undergo colonoscopy in June 2019. This study revealed patient had sigmoid diverticulosis and a polyp that was removed. He has since been started on antibiotics in the form of aztreonam we have been asked to see in consultation. At the time of my visit the patient was resting comfortably in bed and he was in no distress. Allergies Allergy/AdvReac Type Severity Reaction Status Date / Time Penicillins Allergy Severe HIVES Verified 08/08/20 19:53 Home Medications Medication Instructions Recorded Confirmed Type multivitamin [Multiple Vitamins] 1 tab PO QAM #0 tab 06/09/13 08/08/20 History omega 6-rxu-vlz-fish oil [Fish Oil] 1 cap PO QAM #0 cap 03/15/15 08/08/20 History vitamin B complex 1 tab PO QAM #0 11/07/17 08/08/20 History Metamucil 2 tbsp PO QAM 06/22/19 08/08/20 History famotidine [Pepcid] 20 mg PO QPM 06/22/19 08/08/20 History vit A 7,160 unit-vit C 113 mg-vit 1 tab PO QAM tab 02/13/20 08/08/20 History H-ilxk-tmlsnw-lutein 0.5 mg tablet simvastatin 20 mg tablet 20 mg PO HS #90 tab 05/12/20 08/08/20 Rx lisinopril 10 1 tab PO DAILY #90 tab 06/04/20 08/08/20 Rx mg-hydrochlorothiazide 12.5 mg tablet metoprolol succinate 100 mg 100 mg PO DAILY #90 tab 06/04/20 08/08/20 Rx tablet,extended release 24 hr apixaban 5 mg tablet 5 mg PO BID #180 tab 06/30/20 08/08/20 Rx fluticasone propionate 50 2 spray INTRANASAL DAILY #15.8 g 06/30/20 08/08/20 Rx mcg/actuation nasal spray,suspension omeprazole 40 mg capsule,delayed 40 mg PO DAILY #30 cap 06/30/20 08/08/20 Rx release ciprofloxacin HCl 500 mg tablet 500 mg PO BID 10 Days #20 tab 08/05/20 08/08/20 Rx Patient History Medical History 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 Cervicalgia Chronic sore throat External hemorrhoids Gastric ulcer GERD (gastroesophageal reflux disease) Hiatal hernia Hyperlipidemia Hypertension Mixed hyperlipidemia Peripheral neuropathy Stage 2 chronic kidney disease Vertigo Surgical History History of colonoscopy History of esophagogastroduodenoscopy (EGD) 03/03/2018 [facility] History of tooth extraction ALL TEETH REMOVED Family History Mother Myocardial infarction Hypertension Father Cancer Other Heart disease No family history of allergies No family history of bleeding disorder Denies family history of Ovarian cancer Prostate cancer Hearing loss Crohn's disease Breast cancer Colorectal cancer Ulcerative colitis Stroke Asthma Social History Smoking Status: Never smoker Tobacco Type: Cigarettes packs per day: 1.5; Second Hand Exposure: No; Hx Alcohol Use: No Hx Substance Use: No Preferred Language: [place] Communication Ability: Effective Registered Nurse Surgical Services Required: No Beliefs That Will Affect Care: None marital status: Single Current Living Situation: Significant Other Current Living Situation Comment: lives with daughter current occupational status: retired Other Information That Helps Us Care for You: No Feels Safe at Home: Yes Seatbelt Use: never Assistive Devices: None Review of Systems Constitutional: + chills; no fever Eyes: no diplopia Respiratory: no cough Cardiovascular: no chest pain Gastrointestinal: + abdominal pain; no nausea, no hematemesis, no change in bowel habits, no diarrhea/loose stools and no blood in stools Genitourinary: no dysuria Musculoskeletal: no back pain Integumentary: no rash Neurologic: no generalized weakness Physical Exam Constitutional: well developed and well nourished; no acute distress Eyes: no conjunctival abnormality ENMT: Ears: no hearing impairment Neck: trachea midline Respiratory: normal respiratory effort, lungs clear to auscultation Cardiovascular: Rate/Rhythm: regular rate and regular rhythm Gastrointestinal (Abdomen): Abdomen has slight distention. Bowel sounds are present. Patient did have pain with palpation in the left lower quadrant. The remainder of the abdomen was benign. He was noted to have some rebound tenderness in the left lower quadrant. Musculoskeletal: No calf tenderness Skin: no rashes, warm and dry Neurologic: moves all extremities Psychiatric: A+Ox3, euthymic affect Results & Data ([facility]) Vital Signs (Past 12 Hours) Vital Signs Temp Pulse Resp BP Pulse Ox 08/08/20 19:12 113 H 08/08/20 19:01 79 20 08/08/20 19:00 75 19 122/77 95 08/08/20 18:50 77 23 96 08/08/20 18:49 78 20 96 08/08/20 18:48 78 19 125/77 96 08/08/20 16:46 36.2 C L 89 18 132/79 97 PG Care Time/CCT Total # of Minutes Spent Total Time Spent with Patient: Total time spent is greater than 50% in coordination of care (as documented) at patient's floor/unit and/or counseling patient: Coding Level of Care Code 76200 Inpt Consult Level 5 Diagnoses Diverticulitis K57.92
--- NOTE | 2020-08-08 20:17 | History & Physical Report ---
Date of Service August 08, 2020 Assessment & Plan (1) Diverticulitis: Admission and Anticipated Discharge Date Admission Date: Patient is a very pleasant 75 year old male with PMHx Diverticulitis, HTN, GERD, Atrial Flutter, CKD Stage II, Hyperlipidemia that pr esented initially with history of 2 weeks lower umbilical and lower L quadrant abdominal pain. Acute Diverticulitis -Had been treating x3 days outpatient with Ciprofloxacin -WBC elevated at 14.01 on admission -CT Ab/Pelv noting acute diverticulitis of the proximal sigoid colon with probably intramural abscesses and possible small pericolonic abscess -Recommending follow up studies to exclude possibility of neoplasm at this location -Colonoscopy 07/03/2019 showing 6mm polyp at the recto-sigmoid colon which was removed and diverticulosis in the sigmoid and descending colon. -IV Aztreonam and Flagyl in the ED in addition to 1L NSS bolus -Due to patients PCN allergy will continue IV Aztreonam and IV Flagyl for anaerobic coverage -General Surgery consulted, rec monitoring, IV abx, and IV fluids with NPO at this time GERD -Hold home Omperazole and Pepcid -IV Pepcid 20mg BID CKD Stage II -Cr base 1.5~1.8 -Cr 1.93 on admission, mild elevation likely secondary to patients endorsed anorexia -Continue LR 125 ml/hr Atrial Flutter -Does not appear to be in flutter at this time, rate controlled 78 BPM -Continue Metoprolol Succinate 100mg QD -Will hold PM and AM eliquis until reevaluated by surgical team in AM HLD -Hold home statin while NPO -Hold home fish oil while NPO Dispo: Med/Surg for IV antibiotics and monitoring for progression of abdominal pain. Suspect relatively rapid improvement and transition to PO antibiotics and discharge without need for surgical intervention. FEN: NPO, LR 125ml/hr x 2 bags, can continue if continued NPO status in AM DVT: SCD, will hold PM and AM eliquis until reevaluated by surgical team Code: Conditional, CPR OK, DO NOT INTUBATE - discussed with patient at lenth at the bedside History of Present Illness Chief Complaint: Abdominal pain x2 weeks Primary Care Provider: Joanie Pierce MD Patient is a very pleasant 75 year old male with PMHx Diverticulitis, HTN, GERD, Atrial Flutter, CKD Stage II, Hyperlipidemia that presented initially with history of 2 weeks lower umbilical and lower L quadrant abdominal pain. Patient notes that his pain feels very similar to his diverticulitis flare up in 1994 where he was hospitalized and given antibiotics. He did not require surgery during that stay. He states that 2 weeks ago he started noticing pain in his lower L quadrant and below his umbilicus. He also felt warm as though he had a fever, but never took his temperature. He has been having small bowel movements, but endorses anorexia due to "not feeling well. Denies any blood or black and tarry stools. Denies nausea. He notes his last colonoscopy was 07/03/[address] Centeno which showed a 6mm polyp at the recto-sigmoid colon which was removed and diverticulosis in the sigmoid and descending colon. He was started on Ciprofloxacin by his PCP 3 days ago which he has been taking and has noticed minimal improvement in his pain. Currently he states that his abdominal pain is roughly a 2/10 in the LLQ. He denies any fever, chills, SOB, chest pain, rigors, headache, vision changes. His last meal was early this morning with a banana and toast. Med Hx: Atrial Flutter on eliquis, HTN, HLD, CKD stage II Surg Hx: Colonoscopy 07/03/19 Soc Hx: 50 year pack hx, quit 1977. No alcohol, no illicit drugs Fam Hx: Mother NC at 82, Brother multiple sclerosis Allergies Allergy/AdvReac Type Severity Reaction Status Date / Time Penicillins Allergy Severe HIVES Verified 08/08/20 19:53 Home Medications Medication Instructions Recorded Confirmed Type multivitamin [Multiple Vitamins] 1 tab PO QAM #0 tab 06/09/13 08/08/20 History omega 2-skb-mbb-fish oil [Fish Oil] 1 cap PO QAM #0 cap 03/15/15 08/08/20 History vitamin B complex 1 tab PO QAM #0 11/07/17 08/08/20 History Metamucil 2 tbsp PO QAM 06/22/19 08/08/20 History famotidine [Pepcid] 20 mg PO QPM 06/22/19 08/08/20 History vit A 7,160 unit-vit C 113 mg-vit 1 tab PO QAM tab 02/13/20 08/08/20 History K-ljfq-aykjln-lutein 0.5 mg tablet simvastatin 20 mg tablet 20 mg PO HS #90 tab 05/12/20 08/08/20 Rx lisinopril 10 1 tab PO DAILY #90 tab 06/04/20 08/08/20 Rx mg-hydrochlorothiazide 12.5 mg tablet metoprolol succinate 100 mg 100 mg PO DAILY #90 tab 06/04/20 08/08/20 Rx tablet,extended release 24 hr apixaban 5 mg tablet 5 mg PO BID #180 tab 06/30/20 08/08/20 Rx fluticasone propionate 50 2 spray INTRANASAL DAILY #15.8 g 06/30/20 08/08/20 Rx mcg/actuation nasal spray,suspension omeprazole 40 mg capsule,delayed 40 mg PO DAILY #30 cap 06/30/20 08/08/20 Rx release ciprofloxacin HCl 500 mg tablet 500 mg PO BID 10 Days #20 tab 08/05/20 08/08/20 Rx Past Med/Surg History Medical History 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 Cervicalgia Chronic sore throat External hemorrhoids Gastric ulcer GERD (gastroesophageal reflux disease) Hiatal hernia Hyperlipidemia Hypertension Mixed hyperlipidemia Peripheral neuropathy Stage 2 chronic kidney disease Vertigo Surgical History History of colonoscopy History of esophagogastroduodenoscopy (EGD) 03/03/2018 [facility] History of tooth extraction ALL TEETH REMOVED Family History Mother Myocardial infarction Hypertension Father Cancer Other Heart disease No family history of allergies No family history of bleeding disorder Denies family history of Ovarian cancer Prostate cancer Hearing loss Crohn's disease Breast cancer Colorectal cancer Ulcerative colitis Stroke Asthma Social History Smoking Status: Never smoker Tobacco Type: Cigarettes packs per day: 1.5; Second Hand Exposure: No; Hx Alcohol Use: No Hx Substance Use: No Preferred Language: [place] Citizen Communication Ability: Effective Copy Editor Required: No Beliefs That Will Affect Care: None marital status: Single Current Living Situation: Family Current Living Situation Comment: lives with daughter current occupational status: retired Feels Safe at Home: Yes Seatbelt Use: never Assistive Devices: None Review of Systems Review of Systems: All systems reviewed & are unremarkable except as noted in Subjective Physical Exam Constitutional: WD/WN, vitals as above Eyes: PERRL, conjunctivae normal, anicteric sclerae ENMT: external ear and nose normal, oropharynx normal Neck: trachea midline, no thyromegaly Respiratory: normal respiratory effort, lungs clear to auscultation Cardiovascular: RRR, no murmur, no edema Gastrointestinal (Abdomen): Inspection/Auscultation: abdomen normal to inspection and normal bowel sounds; abdomen not distended Percussion/Palpation: + abdomen tender (TTP in the LLQ ) and abdomen soft; no guarding and abdomen not rigid Rebound tenderness on the L with deep palpation and release on the R Musculoskeletal: no cyanosis or clubbing, extremities motor strength 5/5 Skin: no rashes, warm and dry Neurologic: PERRL, EOMI, accommodation nl, no face palsy, no dysarthria Psychiatric: A+Ox3, euthymic affect Results & Data Results & Data ([facility]) Vital Signs (Past 12 Hours) Vital Signs Temp Pulse Resp BP Pulse Ox 08/08/20 19:50 78 14 96 08/08/20 19:40 80 18 96 08/08/20 19:31 77 21 94 08/08/20 19:30 76 19 110/71 94 08/08/20 19:20 77 95 08/08/20 19:12 113 H 08/08/20 19:01 79 20 08/08/20 19:00 75 19 122/77 95 08/08/20 18:50 77 23 96 08/08/20 18:49 78 20 96 08/08/20 18:48 78 19 125/77 96 08/08/20 16:46 36.2 C L 89 18 132/79 97 Laboratory Results Lab Results 08/08/20 08/08/20 08/08/20 Range/Units 17:25 17:25 19:45 WBC 14.01 H (4.8-10.8) K/uL RBC 4.44 L (4.7-6.1) M/uL Hgb 14.1 (14.0-18.0) g/dL Hct 40.9 L (42-52) % MCV 92.1 (80-100) fL MCH 31.8 (25-34) pg MCHC 34.5 (32-36) g/dL RDW Std Deviation 43.1 (36.4-46.3) fL RDW Coeff of Angel Luis 12.7 (11.5-14.5) % Plt Count 310 (130-400) K/uL MPV 10.0 (7.4-10.4) fL Immature Gran % (Auto) 0.3 % Neut % (Auto) 80.2 % Lymph % (Auto) 10.1 % Frontier % (Auto) 8.8 % Eos % (Auto) 0.2 % Baso % (Auto) 0.4 % Neut # (Auto) 11.25 H (1.4-6.5) K/uL Lymph # (Auto) 1.41 (1.2-3.4) K/uL Frontier # (Auto) 1.23 H (0.11-0.59) K/uL Eos # (Auto) 0.03 (0-0.5) K/uL Baso # (Auto) 0.05 (0-0.2) K/uL Immature Gran # (Auto) 0.04 H (0.00-0.02) K/uL Sodium 136 (136-145) mmol/L Potassium 4.2 (3.5-5.1) mmol/L Chloride 105 (98-107) mmol/L Carbon Dioxide 22 (21-32) mmol/L Anion Gap 10.0 (3-11) BUN 30 H (7-18) mg/dl Creatinine 1.93 H (0.6-1.4) mg/dl Est Cr Clr Drug Dosing 36.5 ml/min Est GFR ( Amer) 38.6 Est GFR (Non-Af Amer) 33.3 BUN/Creatinine Ratio 15.3 (10-20) Glucose 110 H (70-99) mg/dl Calcium 9.6 (8.5-10.1) mg/dl Total Bilirubin 0.7 (0.2-1) mg/dl AST 26 (15-37) U/L ALT 47 (12-78) U/L Alkaline Phosphatase 85 (45-117) U/L Total Protein 8.0 (6.4-8.2) gm/dl Albumin 3.3 L (3.4-5.0) gm/dl Globulin 4.7 H (2.5-4.0) gm/dl Albumin/Globulin Ratio 0.7 L (0.9-2) Lipase 185 (73-393) U/L COVID-19 Eval [facility] SARS-CoV-2, RNA, NAAT (NEGATIVE) 08/08/20 Range/Units 19:45 WBC (4.8-10.8) K/uL RBC (4.7-6.1) M/uL Hgb (14.0-18.0) g/dL Hct (42-52) % MCV (80-100) fL MCH (25-34) pg MCHC (32-36) g/dL RDW Std Deviation (36.4-46.3) fL RDW Coeff of Angel Luis (11.5-14.5) % Plt Count (130-400) K/uL MPV (7.4-10.4) fL Immature Gran % (Auto) % Neut % (Auto) % Lymph % (Auto) % Frontier % (Auto) % Eos % (Auto) % Baso % (Auto) % Neut # (Auto) (1.4-6.5) K/uL Lymph # (Auto) (1.2-3.4) K/uL Frontier # (Auto) (0.11-0.59) K/uL Eos # (Auto) (0-0.5) K/uL Baso # (Auto) (0-0.2) K/uL Immature Gran # (Auto) (0.00-0.02) K/uL Sodium (136-145) mmol/L Potassium (3.5-5.1) mmol/L Chloride (98-107) mmol/L Carbon Dioxide (21-32) mmol/L Anion Gap (3-11) BUN (7-18) mg/dl Creatinine (0.6-1.4) mg/dl Est Cr Clr Drug Dosing ml/min Est GFR ( Amer) Est GFR (Non-Af Amer) BUN/Creatinine Ratio (10-20) Glucose (70-99) mg/dl Calcium (8.5-10.1) mg/dl Total Bilirubin (0.2-1) mg/dl AST (15-37) U/L ALT (12-78) U/L Alkaline Phosphatase (45-117) U/L Total Protein (6.4-8.2) gm/dl Albumin (3.4-5.0) gm/dl Globulin (2.5-4.0) gm/dl Albumin/Globulin Ratio (0.9-2) Lipase (73-393) U/L COVID-19 Eval Order SARS-CoV-2, RNA, NAAT NEGATIVE (NEGATIVE) Diagnostic Findings CT SCAN OF THE ABDOMEN AND PELVIS WITHOUT CONTRAST CLINICAL HISTORY: Abdominal pain. Possible diverticulitis. COMPARISON STUDY: No previous studies for comparison. TECHNIQUE: CT scan of the abdomen and pelvis was performed from the lung bases to the proximal femurs. Images are reviewed in the axial, sagittal, and coronal planes. IV contrast was not administered for this examination. A dose lowering technique was utilized adhering to the principles of ALARA. CT DOSE: 587.87 mGy.cm FINDINGS: Lower chest: There is a moderate hiatal hernia. There is mild basilar atelectasis. 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 There is no intrahepatic biliary ductal dilatation. Gallbladder: Unremarkable. Spleen: Normal in size and attenuation. Pancreas: Unremarkable. Adrenal glands: Unremarkable. Kidneys: There is minor bilateral perinephric stranding. There is no hydronephrosis. No renal, ureteral, or bladder calculi are visualized. Bowel: There are no transition zones to indicate bowel obstruction. The appendix appears normal. There is colonic diverticulosis. There is bowel wall thickening of the proximal sigmoid: With infiltration of the parotid colonic fat. Evaluation is limited given the lack of intravenous contrast. There is a probable intramural abscess. There is a possible small abscess within the peridiverticular soft tissues. Peritoneum: There is no intraperitoneal free air or abdominal ascites. There are small fat-containing inguinal hernias versus lipomatous inguinal canals Vasculature: The abdominal aorta is normal in course and caliber. Adenopathy: None. Pelvic viscera: Prostate is enlarged. Skeletal structures: No destructive osseous lesions are seen. IMPRESSION: 1. No evidence of bowel obstruction. No evidence of free air 2. No renal, ureteral, or bladder calculi identified 3. Normal appendix 4. Acute diverticulitis involving the proximal sigmoid colon. There is a probable intramural abscess, and possible small pericolonic abscess. Follow-up studies are recommended to exclude the remote possibility of a neoplasm at this location. ACT 112: Negative or not required by law. Electronically signed by: Ubaldo Bland M.D. 08/08/2020 7:18 PM Dictated: 08/08/201911Transcribed: 08/08/201911 Supervising Physician Co-Signing Physician Notes Patient seen and examined, chart reviewed, case discussed with Dr. Kang and I agree with his assessment and plan as documented above. Briefly, patient is a 75yo C male presenting with acute diverticulitis with abscess. On exam he is afebrile, HD stable, non-toxic in appearance Skin - warm, dry, intact, no rash/lesions HEENT - NC/AT, PERRL, EOMI, MMM, Neck supple Heart - +S1/S2, regular, no m/r/g Lungs - CTA Abd - +BS, soft, mildly distended, tympanic to percussion, mildly tender with deep palpation with rebound tenderness Ext - No edema Labs and images reviewed Assessment/Plan: Acute diverticulitis with abscess formation. Patient afebrile, HD stable, non-toxic in appearance. Abdominal tenderness but not an acute abdomen -Aztreonam + Flagyl -IVF -Pain management -Remainder of plan as above -Repeat imaging when acute issues resolve to exclude neoplasm. Resident Activity Tracking Resident Involvement: Resident Care Provided Care Provided: Adult [facility] Medicine
--- NOTE | 2020-08-08 22:37 | Billing Data ---
Date of Service August 08, 2020 Coding Level of Care Code 15263 Initial Inpt Care Lvl 3
[2020-08-08] MEDS ORDERED: ONDANSETRON INJ 2 MG/ML 2 ML VIAL IV PRN (22:44)
[2020-08-08] MEDS: FAMOTIDINE 20 MG in SYRINGE 3 ML IV SCH (23:35)
[2020-08-08] MEDS: LACTATED RINGER'S 1,000 ML IV SCH (23:36)
[2020-08-09 01:03] LABS: Appearance Urine Clear (Clear); Bacteria Urine Automated Negative (Negative); Bilirubin Urine Negative (Negative); Blood Urine Trace (Negative); Color Urine Yellow; Glucose Urine UA Negative (Negative); Ketones Urine Trace (Negative); Leukocyte Esterase Urine Negative (Negative); Nitrite Urine Negative (Negative); Protein Urine Negative (Negative); RBC Urine Automated 0-4 /hpf (0-4); Specific Gravity Urine 1.021 (1.000-1.030); Urobilinogen Urine Negative (Negative)
[2020-08-09] MEDS: metroNIDAZOLE 500 MG/100 ML BAG IV SCH ×3 (01:36→17:15)
[2020-08-09] MEDS: AZTREONAM 1,000 MG in DEXTROSE 5% 100 ML IV SCH ×3 (04:33→20:04)
[2020-08-09] MEDS ORDERED: ACETAMINOPHEN 500 MG TAB PO PRN (04:42)
[2020-08-09] MEDS ORDERED: HYDROmorphone INJ 0.5 MG/0.5 ML SYR IV PRN (04:42)
--- NOTE | 2020-08-09 06:08 | Surgery Progress Note ---
Date of Service August 09, 2020 Assessment & Plan (1) Diverticulitis: The patient is clinically improving. Recommend continuing n.p.o. status for the present time. Recommend continuing IV antibiotics as ordered. Continue hydration measures with intravenous fluids Admission and Anticipated Discharge Date Admission Date: August 08, 2020 Subjective Patient notes his abdominal pain has improved since admission. He denies nausea, vomiting, fevers, shakes, chills. He notes he did have 1 small bowel movement since admission. He feels as though his abdomen is less distended as well. Physical Exam Neck: trachea midline Respiratory: normal respiratory effort, lungs clear to auscultation Cardiovascular: Rate/Rhythm: regular rate and regular rhythm Gastrointestinal (Abdomen): Bowel sounds are present. His abdomen is less distended than what was noted at time of admission. He continues to have pain with deep palpation in the left lower quadrant. Results & Data ([facility]) Vital Signs (Past 12 Hours) Vital Signs Temp Pulse Pulse Resp BP BP Pulse Ox 08/08/20 22:44 36.5 C 78 18 155/79 H 96 08/08/20 22:22 36.5 C 78 18 155/79 H 96 08/08/20 21:50 71 19 96 08/08/20 21:40 69 19 95 08/08/20 21:31 73 19 95 08/08/20 21:30 56 L 16 112/72 95 08/08/20 21:20 72 16 95 08/08/20 21:10 71 19 94 08/08/20 21:01 72 21 95 08/08/20 21:00 72 19 118/71 95 08/08/20 20:50 73 21 94 08/08/20 20:40 73 18 94 08/08/20 20:31 67 17 95 08/08/20 20:30 73 16 118/70 94 08/08/20 20:20 74 17 94 08/08/20 20:10 74 19 94 08/08/20 20:01 74 20 94 08/08/20 20:00 74 19 131/67 94 08/08/20 19:50 78 14 96 08/08/20 19:40 80 18 96 08/08/20 19:31 77 21 94 08/08/20 19:30 76 19 110/71 94 08/08/20 19:20 77 95 02/12/21 19:12 113 H 08/08/20 19:01 79 20 08/08/20 19:00 75 19 122/77 95 08/08/20 18:50 77 23 96 08/08/20 18:49 78 20 96 08/08/20 18:48 78 19 125/77 96 PG Care Time/CCT Total # of Minutes Spent Total Time Spent with Patient: Total time spent is greater than 50% in coordination of care (as documented) at patient's floor/unit and/or counseling patient: Coding Level of Care Code 74108 Subseq Hosp Care Lvl 1 Diagnoses Diverticulitis K57.92
[2020-08-09 07:15] LABS: Basophils # (auto) 0.03 K/uL (0-0.2); Basophils % (auto) 0.3 %; Eosinophils # (auto) 0.05 K/uL (0-0.5); Eosinophils % (auto) 0.4 %; Hematocrit (blood only) 35.9 % (42-52); Hemoglobin 12.7 g/dL (14.0-18.0); Immature Granulocytes # (auto) 0.03 K/uL (0.00-0.02); Immature Granulocytes % (auto) 0.3 %; Lymphocytes # (auto) 1.71 K/uL (1.2-3.4); Lymphocytes % (auto) 14.8 %; Mean Corpuscular Hemoglobin 32.8 pg (25-34); Mean Corpuscular Hgb Conc 35.4 g/dL (32-36); Mean Corpuscular Volume 92.8 fL (80-100); Monocytes # (auto) 0.39 K/uL (0.11-0.59); Monocytes % (auto) 3.4 %; Neutrophils # (auto) 9.33 K/uL (1.4-6.5); Neutrophils % (auto) 80.8 %; Platelet Count 291 K/uL (130-400); RDW Coefficient of Variation 12.8 % (11.5-14.5); RDW Standard Deviation 43.5 fL (36.4-46.3); Red Blood Count 3.87 M/uL (4.7-6.1); White Blood Count 11.54 K/uL (4.8-10.8)
[2020-08-09 07:44] LABS: BUN Creatinine Ratio 15.5 (10-20); Calcium 8.8 mg/dl (8.5-10.1); Creatinine Clr Calc Pharmacy 39.7 ml/min; Est GFR (African American) 43.2; Est GFR (Non-African American) 37.3; Potassium 4.1 mmol/L (3.5-5.1)
[2020-08-09] MEDS: METOPROLOL SUCC 50MG EXT REL TAB PO SCH (08:05)
[2020-08-09] MEDS: FLUTICASONE PROPIONATE NA SPR 16 GM BTL NAE SCH (08:06)
[2020-08-09] MEDS: FAMOTIDINE 20 MG in SYRINGE 3 ML IV SCH ×2 (08:06→21:04)
[2020-08-09] MEDS: LACTATED RINGER'S 1,000 ML IV SCH ×2 (09:34→17:17)
[2020-08-09 11:52] LABS: Appearance Urine Clear (Clear); Bacteria Urine Automated Negative (Negative); Bilirubin Urine Negative (Negative); Blood Urine 1+ (Negative); Color Urine Yellow; Epithelial Cell Urine Auto 0-5 /lpf (0-5); Glucose Urine UA Negative (Negative); Ketones Urine 1+ (Negative); Leukocyte Esterase Urine Trace (Negative); Nitrite Urine Negative (Negative); Protein Urine Negative (Negative); Urobilinogen Urine Negative (Negative)
--- NOTE | 2020-08-09 13:34 | Hospitalist Progress Note ---
Date of Service August 09, 2020 Assessment & Plan (1) Diverticulitis: Franco is a very pleasant 75 year old male with a history of diverticulitis in 1994, HTN, GERD, previous atrial flutter, CKD Stage II, and hyperlipidemia that presented with history of 2 weeks lower umbilical and lower L quadrant abdominal pain, subsequently found to have evidence of diverticulitis and small possible intramural and colonic abscesses on CT. He has been admitted for IV antibiotic therapy. He is hemodynamically stable. Acute Diverticulitis with Possible Colonic/Intramural Abscesses - demonstrating significant clinical improvement on exam -Had been treating x3 days outpatient with ciprofloxacin/flagyl without much clinical relief -CT Ab/Pelv noting acute diverticulitis of the proximal sigoid colon with probably intramural abscesses and possible small pericolonic abscess -Will require follow-up studies to exclude possibility of neoplasm at this location at recommendation -- anticipate planning once clinically resolved -Colonoscopy 07/03/2019 showing 6mm polyp at the recto-sigmoid colon which was removed and diverticulosis in the sigmoid and descending colon. -Continue IV Aztreonam and Flagyl (note: patient has allergy to PCNs) -General Surgery consulted: continue IV ABX, IVF for hydration, NPO. No procedure planned at present. -Leukocytosis downtrending -- continue to follow, CBC in the AM GERD -Hold home Omperazole and Pepcid -IV Pepcid 20mg BID Mild DINESH, likely Pre-renal, in setting of CKD Stage II -Cr baseline 1.5~1.8 -Cr 1.93 on admission, mild elevation likely secondary to patients endorsed anorexia -Cr downtrending on daily labs -- continue to monitor, BMP in AM -Continue LR 125 ml/hr History of Atrial Flutter -No current evidence of flutter; rate control good at this time -Continue Metoprolol Succinate 100mg PO daily -Continue to hold Eliquis until cleared by general surgery HLD -Hold home statin while NPO -Hold home fish oil while NPO Dispo: Med/Surg for IV antibiotics and monitoring for progression of abdominal pain. FEN: NPO, LR 125ml/hr DVT: SCD, continue to hold Eliquis until cleared by general surgery Code: Conditional, CPR OK, DO NOT INTUBATE (2) Abdominal pain: (3) Hypertension: (4) Stage 2 chronic kidney disease: (5) Mixed hyperlipidemia: (6) Anticoagulant long-term use: Admission and Anticipated Discharge Date Admission Date: August 08, 2020 Supervising Physician Co-Signing Physician Notes Resident Physician Supervision Note: I independently interviewed and examined the patient and verified the lester history and physical, reviewed labs and image studies, discussed the case with the resident Dr. Rodriguez and agree with the findings and care plan. Subjective NAEO. Patient says he is feeling "much better" -- approx. 90% back to where he wants to be. Still endorses some pain in his LLQ/suprapubic area, but much improved from beforehand. He did have one small bowel movement, which was non- melanotic and without hematochezia. Tolerating foods/liquids without difficulty. No palpitations or shortness of breath. No lightheadedness/dizziness. Review of Systems Review of Systems: as per HPI Physical Exam Constitutional: WD/WN, vitals as above Respiratory: normal respiratory effort, lungs clear to auscultation Cardiovascular: RRR, no murmur, no edema Gastrointestinal (Abdomen): NABS. Abdomen mildly distended. Mild TTP in the suprapubic and LLQ areas, no rebound or guarding. Otherwise no TTP in other quadrants. Psychiatric: A+Ox3, euthymic affect Results & Data Results & Data ([facility]) Vital Signs (Past 12 Hours) Vital Signs Temp Pulse Resp BP Pulse Ox 08/09/20 07:16 37.3 C 81 16 120/74 96 Resident Activity Tracking Resident Involvement: Resident Care Provided Care Provided: Adult Hospital Medicine (1) Abdominal pain Abdominal location: unspecified location Qualified Code(s): R10.9 - Unsp ecified abdominal pain
[2020-08-10] MEDS: LACTATED RINGER'S 1,000 ML IV SCH (01:15)
[2020-08-10] MEDS: metroNIDAZOLE 500 MG/100 ML BAG IV SCH ×3 (01:22→17:10)
[2020-08-10] MEDS: AZTREONAM 1,000 MG in DEXTROSE 5% 100 ML IV SCH ×3 (03:51→20:12)
--- NOTE | 2020-08-10 05:22 | Surgery Progress Note ---
Date of Service August 10, 2020 Assessment & Plan (1) Diverticulitis: We will start him on clear liquids today anticipate he will be in the hospital another 1 or 2 days and discharged home on p.o. antibiotics for another week Admission and Anticipated Discharge Date Admission Date: August 08, 2020 Subjective Patient feels much better than yesterday minimal abdominal discomfort no nausea passing flatus Physical Exam Physical Exam: Abdomen is softer no localized tenderness some left lower quadrant guarding less so than yesterday Results & Data ([facility]) Vital Signs (Past 12 Hours) Vital Signs Temp Pulse Resp BP Pulse Ox 08/09/20 22:07 37.3 C 72 16 119/70 93 PG Care Time/CCT Total # of Minutes Spent Total Time Spent with Patient: Total time spent is greater than 50% in coordination of care (as documented) at patient's floor/unit and/or counseling patient: Coding Level of Care Code None Diagnoses Diverticulitis K57.92
[2020-08-10 05:44] LABS: Basophils # (auto) 0.04 K/uL (0-0.2); Basophils % (auto) 0.5 %; Eosinophils # (auto) 0.13 K/uL (0-0.5); Eosinophils % (auto) 1.7 %; Hematocrit (blood only) 34.1 % (42-52); Hemoglobin 11.8 g/dL (14.0-18.0); Immature Granulocytes # (auto) 0.02 K/uL (0.00-0.02); Immature Granulocytes % (auto) 0.3 %; Lymphocytes # (auto) 1.67 K/uL (1.2-3.4); Lymphocytes % (auto) 21.7 %; Mean Corpuscular Hemoglobin 31.9 pg (25-34); Mean Corpuscular Hgb Conc 34.6 g/dL (32-36); Mean Corpuscular Volume 92.2 fL (80-100); Mean Platelet Volume 9.6 fL (7.4-10.4); Monocytes # (auto) 0.93 K/uL (0.11-0.59); Monocytes % (auto) 12.1 %; Neutrophils # (auto) 4.92 K/uL (1.4-6.5); Neutrophils % (auto) 63.7 %; Platelet Count 248 K/uL (130-400); RDW Coefficient of Variation 12.7 % (11.5-14.5); RDW Standard Deviation 43.2 fL (36.4-46.3); White Blood Count 7.71 K/uL (4.8-10.8)
[2020-08-10 06:14] LABS: BUN Creatinine Ratio 15.3 (10-20); Creatinine Clr Calc Pharmacy 47.8 ml/min; Est GFR (African American) 54.1; Est GFR (Non-African American) 46.7; Potassium 3.9 mmol/L (3.5-5.1)
[2020-08-10] MEDS: FLUTICASONE PROPIONATE NA SPR 16 GM BTL NAE SCH (08:14)
[2020-08-10] MEDS: METOPROLOL SUCC 50MG EXT REL TAB PO SCH (08:16)
[2020-08-10] MEDS: FAMOTIDINE 20 MG in SYRINGE 3 ML IV SCH ×2 (08:16→20:12)
[2020-08-10] MEDS: APIXABAN 5 MG TABLET PO SCH ×2 (09:19→20:12)
--- NOTE | 2020-08-10 10:46 | Hospitalist Progress Note ---
Date of Service August 10, 2020 Assessment & Plan (1) Diverticulitis: Franco is a very pleasant 75 year old male with a history of diverticulitis in 1994, HTN, GERD, previous atrial flutter, CKD Stage II, and hyperlipidemia that presented with history of 2 weeks lower umbilical and lower L quadrant abdominal pain, subsequently found to have evidence of diverticulitis and small possible intramural and colonic abscesses on CT. He has been admitted for IV antibiotic therapy. He is hemodynamically stable. Acute Diverticulitis with Possible Colonic/Intramural Abscesses - demonstrating significant clinical improvement on exam -Had been treating x3 days outpatient with ciprofloxacin/Flagyl without much clinical relief -CT Ab/Pelvis noting acute diverticulitis of the proximal sigmoid colon with probably intramural abscesses and possible small pericolonic abscess -Will require imaging vs. colonoscopy in 6-8 weeks' time following discharge to rule-out neoplasm / demonstrate resolution -Colonoscopy 07/03/2019 showing 6mm polyp at the recto-sigmoid colon which was removed and diverticulosis in the sigmoid and descending colon. -Continue IV Aztreonam and Flagyl (note: patient has allergy to PCNs) -- anticipate IV ABX until 08/11, conversion to PO thereafter for 7 days -General Surgery consulted: continue IV ABX, OK for clear liquid diet. PO antibiotics after 08/11 if continuing to demonstrate resolution. -Leukocytosis downtrending -- CBC qAM while here GERD -Hold home Omperazole and Pepcid -IV Pepcid 20mg BID Mild DINESH, likely Pre-renal, in setting of CKD Stage II -- resolved -Cr baseline 1.5~1.8 -Cr 1.93 on admission, mild elevation likely secondary to patient's recent decrease in PO intake -Cr down to 1.46 -Fluid goal: patient amenable to 1800cc+ fluids/day via PO -d/c IVF History of Atrial Flutter - No current evidence of flutter; rate controlled at this time -Continue Metoprolol Succinate 100mg PO daily -Eliquis 5mg PO b.i.d. HLD -Simvastatin 20mg PO daily -Hold home fish oil Dispo: Med/Surg for IV antibiotics and monitoring for progression of abdominal pain. FEN: Clear liquid diet PPX: Home Eliquis Code: Conditional, CPR OK, DO NOT INTUBATE (2) Abdominal pain: (3) Hypertension: (4) Stage 2 chronic kidney disease: (5) Mixed hyperlipidemia: (6) Anticoagulant long-term use: Admission and Anticipated Discharge Date Admission Date: August 08, 2020 Supervising Physician Co-Signing Physician Notes Resident Physician Supervision Note: I independently interviewed and examined the patient and verified the lester history and physical, reviewed labs and image studies, discussed the case with the resident Dr. Rodriguez and agree with the findings and care plan. Subjective No acute events overnight. At the bedside this morning, patient says he is feeling "really good." Says that he continues to have some mild discomfort in his lower left quadrant and suprapubic areas, but continues to improve. He reports having 1 formed bowel movement this morning without any dark or discolored appearance. There was no blood. He reports having good appetite, eager for solid food. Tolerating fluids well. Voiding appropriately and without difficulty. No shortness of breath. No other concerns. Review of Systems Review of Systems: As per HPI Physical Exam Constitutional: Well-appearing 75-year-old gentleman who is sitting at the edge of his bed upon my arrival. He is freely conversive and answers all questions completely. He is in no acute distress. Respiratory: Good respiratory effort with symmetric expansion of the chest. Lungs are clear to auscultation bilaterally without crackles or wheezes. Cardiovascular: Normal rate and regular rhythm. S1 and S2 are present without murmurs rubs or gallops. Gastrointestinal (Abdomen): Normoactive bowel sounds. Abdomen is mildly tender to palpation in the suprapubic regions, not as much in the left lower quadrant this morning. No tenderness to palpation elsewhere. No appreciable distention. No rebound or guarding. Psychiatric: A+Ox3, euthymic affect Results & Data Results & Data ([facility]) Vital Signs (Past 12 Hours) Vital Signs Temp Pulse Resp BP Pulse Ox 08/10/20 06:17 36.8 C 69 16 116/71 95 Resident Activity Tracking Resident Involvement: Resident Care Provided Care Provided: Adult Hospital Medicine (1) Abdominal pain Abdominal location: unspecified location Qualified Code(s): R10.9 - Unspecified abdominal pain
[2020-08-10] MEDS ORDERED: SIMVASTATIN 20 MG TAB PO SCH (21:00)
[2020-08-11] MEDS: metroNIDAZOLE 500 MG/100 ML BAG IV SCH ×2 (01:49→10:42)
[2020-08-11] MEDS: AZTREONAM 1,000 MG in DEXTROSE 5% 100 ML IV SCH (03:53)
[2020-08-11 06:42] LABS: Basophils # (auto) 0.04 K/uL (0-0.2); Basophils % (auto) 0.6 %; Eosinophils # (auto) 0.23 K/uL (0-0.5); Eosinophils % (auto) 3.7 %; Hematocrit (blood only) 36.4 % (42-52); Hemoglobin 12.5 g/dL (14.0-18.0); Immature Granulocytes # (auto) 0.02 K/uL (0.00-0.02); Immature Granulocytes % (auto) 0.3 %; Lymphocytes # (auto) 1.55 K/uL (1.2-3.4); Lymphocytes % (auto) 24.9 %; Mean Corpuscular Hemoglobin 31.8 pg (25-34); Mean Corpuscular Hgb Conc 34.3 g/dL (32-36); Mean Corpuscular Volume 92.6 fL (80-100); Monocytes % (auto) 14.5 %; Neutrophils # (auto) 3.48 K/uL (1.4-6.5); Platelet Count 321 K/uL (130-400); RDW Coefficient of Variation 12.7 % (11.5-14.5); RDW Standard Deviation 43.2 fL (36.4-46.3); Red Blood Count 3.93 M/uL (4.7-6.1); White Blood Count 6.22 K/uL (4.8-10.8)
[2020-08-11 06:54] LABS: BUN Creatinine Ratio 14.5 (10-20); Calcium 8.7 mg/dl (8.5-10.1); Creatinine Clr Calc Pharmacy 51.3 ml/min; Est GFR (Non-African American) 50.9; Potassium 4.1 mmol/L (3.5-5.1)
[2020-08-11 06:55] LABS: C Reactive Protein 11.1 mg/dl (0-0.29)
--- NOTE | 2020-08-11 08:20 | Surgery Progress Note ---
Date of Service August 11, 2020 Assessment & Plan Admission and Anticipated Discharge Date Admission Date: August 08, 2020 Subjective feeling better, bowels moving Physical Exam Gastrointestinal (Abdomen): Inspection/Auscultation: abdomen not distended Results & Data ([facility]) Vital Signs (Past 12 Hours) Vital Signs Temp Pulse Resp BP Pulse Ox 08/11/20 07:11 36.6 C 66 16 151/80 H 95 08/10/20 22:53 36.9 C 73 14 112/67 95 PG Care Time/CCT Total # of Minutes Spent Total Time Spent with Patient: Total time spent is greater than 50% in coordination of care (as documented) at patient's floor/unit and/or counseling patient: Coding Level of Care Code 98238 Subseq Hosp Care Lvl 3
--- NOTE | 2020-08-11 08:21 | Surgery Progress Note ---
Date of Service August 11, 2020 Assessment & Plan (1) Diverticulitis: Per my point of view the patient can be discharged today have instructed him to be on a low fiber diet until his bowel movements returned to normal caliber at that time go to a high-fiber diet He should be on antibiotics for another 7 days Cipro Flagyl combination is fine We will see him in the office 1 or 2 weeks and that time reevaluate for possible elective colon resection Of note he had colonoscopy within the last year or so All questions were answered Present on Admission?: Yes Admission and Anticipated Discharge Date Admission Date: August 08, 2020 Subjective Patient is up and around virtual 0 pain on a scale to 10 when he first came in He states that he had a bowel movement this morning although the caliber was small He denies any abdominal discomfort The present time he standing up talking to us without any discomfort Results & Data ([facility]) Vital Signs (Past 12 Hours) Vital Signs Temp Pulse Resp BP Pulse Ox 08/11/20 07:11 36.6 C 66 16 151/80 H 95 08/10/20 22:53 36.9 C 73 14 112/67 95 PG Care Time/CCT Total # of Minutes Spent Total Time Spent with Patient: Total time spent is greater than 50% in coordination of care (as documented) at patient's floor/unit and/or counseling patient: Coding Level of Care Code None Diagnoses Diverticulitis K57.92
[2020-08-11] MEDS: FLUTICASONE PROPIONATE NA SPR 16 GM BTL NAE SCH (08:56)
[2020-08-11] MEDS: METOPROLOL SUCC 50MG EXT REL TAB PO SCH (08:59)
[2020-08-11] MEDS: APIXABAN 5 MG TABLET PO SCH (08:59)
[2020-08-11] MEDS ORDERED: FAMOTIDINE 20 MG TAB PO SCH (09:00)
--- NOTE | 2020-08-11 09:15 | Discharge Summary ---
Date of Service August 11, 2020 Admission HPI Per Admitting Provider Patient is a very pleasant 75 year old male with PMHx Diverticulitis, HTN, GERD, Atrial Flutter, CKD Stage II, Hyperlipidemia that presented initially with history of 2 weeks lower umbilical and lower L quadrant abdominal pain. Patient notes that his pain feels very similar to his diverticulitis flare up in 1994 where he was hospitalized and given antibiotics. He did not require surgery during that stay. He states that 2 weeks ago he started noticing pain in his lower L quadrant and below his umbilicus. He also felt warm as though he had a fever, but never took his temperature. He has been having small bowel movements, but endorses anorexia due to "not feeling well. Denies any blood or black and tarry stools. Denies nausea. He notes his last colonoscopy was 07/03/[address] Centeno which showed a 6mm polyp at the recto-sigmoid colon which was removed and diverticulosis in the sigmoid and descending colon. He was started on Ciprofloxacin by his PCP 3 days ago which he has been taking and has noticed minimal improvement in his pain. Currently he states that his abdominal pain is roughly a 2/10 in the LLQ. He denies any fever, chills, SOB, chest pain, rigors, headache, vision changes. His last meal was early this morning with a banana and toast. Med Hx: Atrial Flutter on eliquis, HTN, HLD, CKD stage II Surg Hx: Colonoscopy 07/03/19 Soc Hx: 50 year pack hx, quit 1977. No alcohol, no illicit drugs Fam Hx: Mother [place] at 82, Brother multiple sclerosis Admission Exam Per Admitting Provider Constitutional: WD/WN, vitals as above Eyes: PERRL, conjunctivae normal, anicteric sclerae ENMT: external ear and nose normal, oropharynx normal Neck: trachea midline, no thyromegaly Respiratory: normal respiratory effort, lungs clear to auscultation Cardiovascular: RRR, no murmur, no edema Gastrointestinal (Abdomen): Inspection/Auscultation: abdomen normal to inspection and normal bowel sounds; abdomen not distended Percussion/Palpation: + abdomen tender (TTP in the LLQ ) and abdomen soft; no guarding and abdomen not rigid Rebound tenderness on the L with deep palpation and release on the R Musculoskeletal: no cyanosis or clubbing, extremities motor strength 5/5 Skin: no rashes, warm and dry Neurologic: PERRL, EOMI, accommodation nl, no face palsy, no dysarthria Psychiatric: A+Ox3, euthymic affect Principal Diagnosis Diverticulitis Discharge Exam Constitutional WD/WN, vitals as above no acute distress Eyes PERRL, conjunctivae normal, anicteric sclerae Respiratory normal respiratory effort, lungs clear to auscultation Cardiovascular RRR, no murmur, no edema Gastrointestinal (Abdomen) normal bowel sounds, soft, nontender, no hepatosplenomegaly Musculoskeletal no cyanosis or clubbing, extremities motor strength 5/5 Skin no rashes, warm and dry Psychiatric A+Ox3, euthymic affect Discharge Data Allergies Allergy/AdvReac Type Severity Reaction Status Date / Time Penicillins Allergy Severe HIVES Verified 08/08/20 19:53 Consultations 08/08/20 19:27 ED Decision to Admit Stat 08/08/20 19:29 Consult General Surgery Stat Ordered Studies 08/08/20 18:13 CT abd pelvis wo con Stat Hospital Course (1) Diverticulitis: Franco is a very pleasant 75-year-old gentleman with a notable history of diverticulitis in 1994, HTN, GERD, previous atrial flutter, CKD stage II, and hyperlipidemia who presented to [facility] for evaluation of left lower quadrant/lower umbilical abdominal pain for approximately 2 weeks. Of note, he was being treated for suspected diverticulitis for approximately 3 days with ciprofloxacin/Flagyl prior to his presentation. In the ED, he underwent a CT scan which did demonstrate sigmoidal diverticulitis alongside small possible intramural/colonic abscesses. He was also found to have a mild prerenal DINESH. He was started on aztreonam and Flagyl in the ED (of note, patient does have allergy to penicillins) and IV fluids, and subsequently admitted for further management. He was followed by general surgery while here; there were no indications for procedural intervention. He was initially n.p.o., but diet was slowly advanced, which he tolerated well. He demonstrated significant clinical improvement in his pain and general discomfort throughout his course here. He also underwent daily laboratories, which showed a downward trend of his leukocytosis and eventual normalization. By the day of his discharge, patient reported feeling well with no complaints--no n/v, no abd pain. Upon discharge, patient is to continue oral antibiotics ( Ciprofloxacin plus me tronidazole) for 7 days. Given the findings of possible intramural/colonic abscesses on imaging, radiology did recommend repeat imaging/visualization to rule out possible neoplasm. This should be done in approximately 6 to 8 weeks time following his discharge. He will have follow-up with surgery within 1-2 weeks of discharge to discuss possible elective colon resection. (2) Abdominal pain: (3) Anticoagulant long-term use: (4) Hypertension: (5) Atrial flutter with rapid ventricular response: Total Time Total Time Spent Total Time Spent (In Minutes): Less than 30 Discharge Plan Discharge Items Patient Disposition: Home - Self-Care Reason For Visit: DIVERTICULITIS Discharge Diagnosis: Diverticulitis Activity: Per Instructions section Non-emergency contact: Primary Care Provider and Surgeon Call non-emergency contact if: you have any medication questions and your symptoms worsen Follow-up/Referrals: Sergio Dowell MD [Surgeon] - 08/18/20 9:30 am (Patient seen in hospital for diverticulitis. F/U recommended within 1-2 weeks.) Joanie Pierce MD [Primary Care Provider] - Diet: Heart Healthy and Low Fiber Addtl Attending Provider Instructions: You presented to [facility] for evaluation of abdominal pain for approximately 2 weeks. You were being treated for suspected diverticulitis for approximately 3 days with ciprofloxacin & Flagyl prior to your arrival here. In the ED, you underwent a CT scan which demonstrated diverticulitis alongside small possible intramural/colonic abscesses. You were started on aztreonam plus Flagyl, as well as IV fluids, and subsequently admitted for further management. You were followed by general surgery while here--there were no indications for procedural intervention. Your oral diet was initially held, but was slowly progressed, which you tolerated well. Upon discharge, you will continue oral treatment with Ciprofloxacin and Flagyl for 7 days. You will have follow-up with General Surgery within 1-2 weeks for discussion of future elective surgical options. Additionally, it is recommended that you follow a low fiber diet until your bowel movements return to normal caliber, at which time you should transition to a high fiber diet. Pending Studies at Discharge: No Stand-Alone Forms: My [facility], Smoking Cessation Medications and DC Order Prescriptions: New ciprofloxacin HCl [Cipro] 500 mg tablet 500 mg PO BID 7 Days Qty: 14 RF: 0 metronidazole 500 mg tablet 500 mg PO TID 7 Days Qty: 21 RF: 0 Continued multivitamin [Multiple Vitamins] Tablet 1 tab PO QAM Qty: 0 RF: 0 omega 0-qcp-ocl-fish oil [Fish Oil] 1,000 mg (120 mg-180 mg) Capsule 1 cap PO QAM Qty: 0 RF: 0 vitamin B complex Tablet 1 tab PO QAM Qty: 0 RF: 0 simvastatin [Zocor] 20 mg tablet 20 mg PO HS Qty: 90 RF: 1 omeprazole 40 mg capsule,delayed release(DR/EC) 40 mg PO DAILY Qty: 30 RF: 2 Eliquis 5 mg tablet 5 mg PO BID Qty: 180 RF: 3 fluticasone propionate 50 mcg/actuation spray,suspension 2 spray intranasal DAILY Qty: 15.8 RF: 8 lisinopril-hydrochlorothiazide 10-12.5 mg tablet 1 tab PO DAILY Qty: 90 RF: 3 metoprolol succinate 100 mg tablet extended release 24 hr 100 mg PO DAILY Qty: 90 RF: 3 famotidine [Pepcid] 20 mg Tablet 20 mg PO QPM RF: 0 Ocular Vitamins 7,160 unit- 113 mg-0.5 mg tablet 1 tab PO QAM RF: 0 Discontinued ciprofloxacin HCl [Cipro] 500 mg tablet 500 mg PO BID 10 Days Qty: 20 RF: 0 Metamucil 3.4 gram/5.4 gram Powder 2 tbsp PO QAM RF: 0 Discharge Orders: Discharge Order (Routine); Ordered 08/11/20 Ordered By: Tramaine Delgado/Other Patient Handouts: Low-Fiber Diet Admission Data Admit Date/Time: 08/08/20 20:24 Attending Provider: Harjinedr Kitchen Admit Provider: Joni Kang Primary Care Provider: Joanie Pierce Other Providers: Ashanti Agrawal ; Sergio Dowell ; Skylar Salas Other Interventions: Discharge Summary Assessment (RN) Last Done: 08/11/20 11:30 Supervising Physician Co-Signing Physician Notes I personally examined the patient and verified all lester points of history and exam, discussed case, and agree with decision making with Dr Elmore. Feeling better and wants to go home. Answered all questions to the best my abil ity and to his satisfaction. Vitals noted, in general he is awake and alert pleasant no distress. HEENT normocephalic atraumatic mucous membranes moist. Breathing unlabored no accessory muscle use good effort. Skin shows no rashes no pallor or icterus. Neuro shows cranial nerves II through XII be grossly intact gross motor and sensory are intact. Diverticulitis with microabscessstable for home, ongoing antibiotics, close outpatient follow-up. Otherwise as above. Resident Activity Tracking Resident Involvement: Resident Care Provided Care Provided: Adult Hospital Medicine
--- NOTE | 2020-08-11 18:40 | Billing Data ---
Date of Service August 11, 2020 Coding Level of Care Code D/C Day Management <30 mins
== END 2020-08-11 12:09 | disposition home or self-care (01) | DRG 392 ==
LOC: ED 16:33 → SUATTDRO 20:24 → 3W 20:24